=== PATIENT | female | born 1940 ===

== ENCOUNTER 2023-07-20 12:09 | Outpatient (REF) | payer MEDICARE, SELFPAY | END 2023-07-20 12:10 | disposition home or self-care (01) | LOC: HO.HHCL 12:09 | PROVIDERS: Visit Provider Internal Medicine | DX: E11.65 Type 2 diabetes mellitus with hyperglycemia (principal) | CPT/HCPCS: 82043; 82570 ==

== ENCOUNTER 2023-09-12 12:03 | Outpatient (REF) | payer MEDICARE, SELFPAY ==
[2023-09-12 13:30] LABS: MANUAL DIFF FLAG NO
[2023-09-12 13:59] LABS: Basophils Percent Auto 0.5 % (0-2); Eosinophils Absolute Auto 0.1 X10*3/uL (0.0-0.4); Eosinophils Percent Auto 1.1 % (0-4); Hematocrit 42.3 % (37.0-47.0); Hemoglobin 13.7 g/dl (12.0-16.0); Imm Gran Abs Auto 0.02 X10*3/uL (0.00-0.03); Imm Gran Pct Auto 0.3 % (0.0-0.4); Lymphocytes Absolute Auto 1.6 X10*3/uL (1.2-4.9); Lymphocytes Percent Auto 24.6 % (20-40); Mean Corpuscular HGB Conc 32.4 g/dl (31.0-35.0); Mean Corpuscular Hemoglobin 29.3 pg (27.0-33.0); Mean Corpuscular Volume 90.4 fL (80.0-98.0); Mean Platelet Volume 11.9 fL (9.4-12.3); Monocytes Absolute Auto 0.5 X10*3/uL (0.1-1.2); Monocytes Percent Auto 7.6 % (2-11); Neutrophils Absolute Auto 4.3 x10*3/uL (2.0-8.3); Neutrophils Percent Auto 65.9 % (45-73); Platelet Count 227 X10*3/uL (160-400); Red Blood Count 4.68 X10*6/uL (4.20-5.50); Red Cell Distribution Width 13.1 % (11.0-16.0); White Blood Count 6.5 X10*3/uL (4.8-10.8)
[2023-09-12 14:28] LABS: Creatinine Urine 81.57 mg/dL; Microalbum/Creatinine Ratio Ur 7.3 ug/mg cr (<30)
[2023-09-12 14:32] LABS: Alanine Aminotransferase 15 U/L (0-31); Alkaline Phosphatase 50 U/L (39-117); Anion Gap 12 (12-20); Aspartate Amino Transferase 17 U/L (5-31); Bilirubin Direct 0.2 mg/dL (0.0-0.5); Bilirubin Total 0.6 mg/dL (0.0-1.0); Blood Urea Nitrogen 14 mg/dL (9-16); Calcium 9.4 mg/dL (8.4-10.2); Carbon Dioxide 27 mmol/L (22-29); Chloride 106 mmol/L (96-108); Cholesterol 149 mg/dL (<200); Estimated Glomerular Filt Rate > 60; Glucose Random 113 mg/dL (60-115); HDL Cholesterol 59 mg/dL (>40); LDL Cholesterol Calculated 74 mg/dL (<100); Sodium 141 mmol/L (135-145); Total Protein 7.2 g/dL (6.5-8.0); Triglycerides 82 mg/dL (<150)
== END 2023-09-12 12:04 | disposition home or self-care (01) ==
LOC: HO.HHCL 12:03
PROVIDERS: Visit Provider Internal Medicine
DX: E11.65 Type 2 diabetes mellitus with hyperglycemia (principal)
CPT/HCPCS: 36415; 80048; 80061; 80076; 82043; 82570; 85025

== ENCOUNTER 2023-10-27 12:22 | Outpatient (REF) | payer MEDICARE, SELFPAY ==
[2023-10-27 14:24] LABS: Vitamin B12 1548 pg/mL (200-900)
== END 2023-10-27 12:23 | disposition home or self-care (01) ==
LOC: HO.HHCL 12:22
PROVIDERS: Visit Provider Internal Medicine
DX: E11.65 Type 2 diabetes mellitus with hyperglycemia (principal)
CPT/HCPCS: 36415; 82607

== ENCOUNTER 2024-05-07 12:20 | Outpatient (REF) | payer MEDICARE, SELFPAY ==
--- NOTE | ~2024-05-07 | XR_ITS ---
EXAMINATION: LEFT SHOULDER, LEFT HIP CLINICAL INFORMATION: Left hip and left shoulder COMPARISON: None available. TECHNIQUE: 2 views left hip, 5 views left shoulder FINDINGS: Some mild degenerative changes are present in the left hip with some minimal lateral acetabular osteophytes. No significant joint space narrowing seen. No fractures or dislocations. There is evidence of rotator cuff disease with sclerosis and erosion of the undersurface of the acromium. Some mild degenerative changes are seen at the glenohumeral joint. No definite rotator cuff calcification is seen. Some small probable osteophytes seen arising from the scapula projecting posteriorly on the Y view. XR/XR shoulder LT min 2V IMPRESSION: Mild degenerative changes in the left hip and left shoulder. Evidence of rotator cuff disease.
--- NOTE | ~2024-05-07 | XR_ITS ---
EXAMINATION: LEFT SHOULDER, LEFT HIP CLINICAL INFORMATION: Left hip and left shoulder COMPARISON: None available. TECHNIQUE: 2 views left hip, 5 views left shoulder FINDINGS: Some mild degenerative changes are present in the left hip with some minimal lateral acetabular osteophytes. No significant joint space narrowing seen. No fractures or dislocations. There is evidence of rotator cuff disease with sclerosis and erosion of the undersurface of the acromium. Some mild degenerative changes are seen at the glenohumeral joint. No definite rotator cuff calcification is seen. Some small probable osteophytes seen arising from the scapula projecting posteriorly on the Y view. XR/XR hip LT min 2V IMPRESSION: Mild degenerative changes in the left hip and left shoulder. Evidence of rotator cuff disease.
== END 2024-05-07 12:21 | disposition home or self-care (01) ==
LOC: HO.HHCX 12:20
PROVIDERS: Visit Provider Internal Medicine
DX: M25.552 Pain in left hip (principal); M25.512 Pain in left shoulder; G89.29 Other chronic pain
CPT/HCPCS: 73030; 73502

== ENCOUNTER 2024-09-14 15:42 | Outpatient (REF) | payer MEDICARE, SELFPAY ==
[2024-09-14 17:48] LABS: MANUAL DIFF FLAG NO
[2024-09-14 17:53] LABS: Basophils Percent Auto 0.4 % (0-2); Eosinophils Absolute Auto 0.2 X10*3/uL (0.0-0.4); Eosinophils Percent Auto 1.7 % (0-4); Hematocrit 41.8 % (37.0-47.0); Hemoglobin 13.7 g/dl (12.0-16.0); Imm Gran Abs Auto 0.02 X10*3/uL (0.00-0.03); Imm Gran Pct Auto 0.2 % (0.0-0.4); Lymphocytes Absolute Auto 2.4 X10*3/uL (1.2-4.9); Lymphocytes Percent Auto 26.2 % (20-40); Mean Corpuscular HGB Conc 32.8 g/dl (31.0-35.0); Mean Corpuscular Volume 88.4 fL (80.0-98.0); Mean Platelet Volume 11.7 fL (9.4-12.3); Monocytes Absolute Auto 0.8 X10*3/uL (0.1-1.2); Monocytes Percent Auto 8.3 % (2-11); Neutrophils Absolute Auto 5.9 x10*3/uL (2.0-8.3); Neutrophils Percent Auto 63.2 % (45-73); Platelet Count 251 X10*3/uL (160-400); Red Blood Count 4.73 X10*6/uL (4.20-5.50); Red Cell Distribution Width 13.5 % (11.0-16.0); White Blood Count 9.3 X10*3/uL (4.8-10.8)
[2024-09-14 18:13] LABS: Alanine Aminotransferase 23 U/L (0-31); Alkaline Phosphatase 66 U/L (39-117); Anion Gap 14 (12-20); Aspartate Amino Transferase 22 U/L (5-31); Bilirubin Total 0.5 mg/dL (0.0-1.0); Blood Urea Nitrogen 22 mg/dL (9-16); Calcium 9.5 mg/dL (8.4-10.2); Carbon Dioxide 26 mmol/L (22-29); Chloride 104 mmol/L (96-108); Estimated Glomerular Filt Rate > 60; Glucose Random 105 mg/dL (60-115); Potassium 3.9 mmol/L (3.3-5.1); Sodium 140 mmol/L (135-145); Total Protein 7.3 g/dL (6.5-8.0)
== END 2024-09-14 15:43 | disposition home or self-care (01) ==
LOC: HO.HHCL 15:42
PROVIDERS: Visit Provider Nurse Practitioner
DX: Z01.818 Encounter for other preprocedural examination (principal)
CPT/HCPCS: 36415; 80053; 85025

== ENCOUNTER 2025-02-18 10:50 | Outpatient (REF) | payer MEDICARE, SELFPAY ==
--- OUTSIDE RECORDS SUMMARY | 2025-02-18 11:34 | XMS_ITS | Encounter Summary ---
Author Organization [employer] Address [address] [facility] [address] [place] [address] Care Team Providers Care Supervisor Press Room Name Role Phone Melanie Austin MD Primary Care Provide r Reason for Visit * Reason Onset Date Comments New Patient 06/21/2023 Encounter Details Date Type Department Care Team (Late st Contact Info) Description 06/21/2023 Telephone [facility] [address] [place], [place] [phone] Marcial Martinez MD [address] [place] [address] New Patient Social History Tobacco Use Types Packs/Day Years Used Date Smoking Tobacco: Never Assessed Comments Unknown Sex and Gender Information Value Date Recorded Sex Assigned at Female 06/21/2023 5:28 PM EDT Legal Sex Female 5:23 PM EDT Gender Identity Female 06/21/2023 5:28 PM EDT Sexual Orientation Don't know 08/12/2023 9: 43 AM EDT Sexual Orientation Straight 08/12/2023 9: 43 AM EDT documented as of this encounter Miscellaneous Notes * Telephone Encounter - Hood Peres - 06/28/2023 11:42 AM EDT PAR Hood Cole called pt to Offer HOUSE CALLS NURSE appt. Pt demographics and insurance information were verified. Pt reports the following medical conditions: Diabetes and High Blood Pressure. Pt is currentlytaking medication: Yes (advised to please bring on date of appt.) Pt given HOUSE CALLS NURSE appt with Dr. Manzanares on 07/15/2023 @ 2:00 pm. Pt will be sent appt reminder card and medical release form and agrees tocomplete and to return to medical records prior to HOUSE CALLS NURSE appt. * Telephone Encounter - Cristopheralisson Douglas Peres - 06/21/2023 5:29 PM EDT Pt has been transfer over to wait list for HOUSE CALLS NURSE. EFFECTIVE SINCE 06/21/2023 documented in this encounter Plan of Treatment Upcoming Encounters Date Type Department Care Team (Late st Contact Info) Description 03/07/2025 11:00 AM EDT Clinical Support [address] [address] 05/27/2025 11:00 AM EDT Office Visit [facility] [address] [place] [phone] Melanie Austin MD [address] [place] [address] documented as of this encounter Visit Diagnoses Not on filedocumented in this encounter Care Teams Supervisor Press Room Relationship Specialty Start Date End Date Melanie Austin MD [address] [place] [phone] PCP - General Internal Medicine 07/19/23 documented as of this encounter
--- OUTSIDE RECORDS SUMMARY | 2025-02-18 11:35 | XMS_ITS | Clinical Summary ---
Author Organization [employer] Address [address] [facility] 7[address] [place] [address] Care Team Providers Care Cargo Bracer Name Role Phone Melanie Austin MD Primary Care Provide r Allergies Active Allergy Reactions Criticality Noted Date Comments Aspirin Nausea And Vomiting 06/03/2003 Other reaction(s): Gastritis Medications Blood Glucose Monitoring Suppl (Portfolia) w/Device kitIndications:Ty pe 2 diabetes mellitus with hyperglycemia, without long-term current use of insulin (CMS/HCC) Use to monitor blood glucose twice daily 1 kit 3 Active Multiple Vitamin (Daily-Wilfrid) tablet TAKE 1 TABLET BY MOUTH 1 TIME DAILY. TAKE WITH FOOD. 90 tablet 3 4 Active Blood Pressure Monitoring (Omron 3 Series BP Monitor) device USE TO CHECK BLOOD PRESSURE ONCE DAILY 4 Active amLODIPine (Norvasc) 5 MG tabletIndications :Primary hypertension Take 1 tablet (5 mg) by mouth Once per day. 30 tablet 4 02/20/20 25 Active dextran 70-hypromellose (artificial tears) 0.1-0.3 % ophthalmic solutionIndicatio ns:Dry eyes Administer 1 drop into both eyes if needed in the morning, at noon, and at bedtime for dry eyes. 15 mL 5 4 07/31/20 25 Active atorvastatin (Lipitor) 40 MG tabletIndications :Type 2 diabetes mellitus with hyperglycemia, without long-term current use of insulin (CMS/HCC) Take 1 tablet (40 mg) by mouth Once per day. 30 tablet 11 4 08/30/20 25 Active cholecalciferol (Vitamin D-3) 25 MCG tabletIndications :Type 2 diabetes mellitus with hyperglycemia, without long-term current use of insulin (CMS/[facility]) TAKE 1 TABLET BY MOUTH EVERY MORNING 90 tablet 1 4 Active glucose blood (OneTouch Verio) test stripIndications: Type 2 diabetes mellitus with hyperglycemia, without long-term current use of insulin (CMS/HCC) TEST BLOOD SUGAR TWICE DAILY 100 strip 11 4 Active Lancets (Ingenium GolfTouch Delica Plus [id number]) miscIndications:T ype 2 diabetes mellitus with hyperglycemia, without long-term current use of insulin (CMS/HCC) TEST BLOOD SUGAR TWICE DAILY 100 each 11 4 Active losartan-hydroCHL OROthiazide (Hyzaar) 100-25 MG tabletIndications :Primary hypertension TAKE 1 TABLET BY MOUTH EVERY MORNING 30 tablet 11 5 Active metFORMIN, OSM, (Fortamet) 500 MG 24 hr tabletIndications :Type 2 diabetes mellitus with hyperglycemia, without long-term current use of insulin (CMS/[facility]) Take 1 tablet (500 mg) by mouth with evening meal. Do not crush, chew, or split. 30 tablet 3 5 02/19/20 26 Active doxycycline (Vibra-Tabs) 100 MG tabletIndications :Infected wound Take 1 tablet (100 mg) by mouth 2 times daily for 7 days. Take with a full glass of water and do not lie down for at least 30 minutes after. 14 tablet 5 02/26/20 25 Active Active Problems Problem Noted Date Diagnosed Date Infected wound 02/18/2025 Preop examination 11/20/2024 Assessment & Plan (11/20/2024 12:25 PM EST): Patient is low risk for low risk procedure Surgery should proceed as scheduled RCRI score is 0 which means is a 3.9% risk I advised n.p.o. after midnight before the procedure Advised to take her blood pressure medications the morning of the procedure with a small sip of water Bilateral leg weakness 11/20/2024 Neuropathy of both feet 05/07/2024 Assessment & Plan (05/07/2024 12:21 PM EDT): Podiatry referral Chronic left shoulder pain 02/06/2024 Assessment & Plan (05/07/2024 12:21 PM EDT): XRAY will be reprinted and given to patient Acetaminophen PRN Left hip pain 02/06/2024 Type 2 diabetes mellitus wit hout complication, without long-term current use of insulin 07/15/2023 Assessment & Plan (11/20/2024 12:26 PM EST): Extensive counseling about diabetic diet done today I also advised cardiovascular exercise as tolerated I decided to discontinue metformin she is only taking 500 mg once a day I will recheck her A1c and she was on next appointment if it starts to climb in up again I will restart her metformin Assessment & Plan (05/07/2024 12:22 PM EDT): Diabetes is: controlled - Lab Results Component Value Date HGBA1C 6.4 (A) 05/07/2024 HGBA1C 5.9 01/27/2024 HGBA1C 6.2 (A) 10/27/2023 - Lab Results Component Value Date MICROALBUR 6.0 09/12/2023 CREATININE 0.60 09/12/2023 -Changes: none - Diabetic eye exam:referral done - Diabetic foot exam:referral done - Continue lifestyle modifications - Continue current medications - Follow up: 3 months Assessment & Plan (02/06/2024 4:37 PM EDT): Diabetes is: controlled - Lab Results Component Value Date HGBA1C 5.9 01/27/2024 HGBA1C 6.2 (A) 10/27/2023 - Lab Results Component Value Date MICROALBUR 6.0 09/12/2023 CREATININE 0.60 09/12/2023 -Changes: none - Diabetic eye exam:up to date - Diabetic foot exam:pending - Continue lifestyle modifications - Continue current medications - Follow up: 3 months Assessment & Plan (07/15/2023 2:44 PM EDT): Diet counseling done C/w metformin 500mg BID Primary hypertension 07/15/2023 Assessment & Plan (05/07/2024 12:21 PM EDT): - Aerobic exercise to reduce BP. Initial goal of 30 min walk 3-5x/week. Increase as tolerated. - low-sodium diet (goal: <2g/day) and heart healthy diet such as DASH to reduce BP and prevent ASCVD. - Home BP monitoring 1-2 x day with goal of <140/90. - Seek immediate medical attention for chest pain, palpitations, SOB, syncope, or sudden changes in mental status. - Do not change or discontinue current prescriptions without first consulting health care provider Assessment & Plan (02/06/2024 4:36 PM EDT): -Blood pressure is high today I increase her amlodipine to 10mg RTC in 2 weeks with nurse for BP check if BP not at goal plan is to add hydralazine 25mg TID - Aerobic exercise to reduce BP. Initial goal of 30 min walk 3-5x/week. Increase as tolerated. - low-sodium diet (goal: <2g/day) and heart healthy diet such as DASH to reduce BP and prevent ASCVD. - Home BP monitoring 1-2 x day with goal of <140/90. - Seek immediate medical attention for chest pain, palpitations, SOB, syncope, or sudden changes in mental status. - Do not change or discontinue current prescriptions without first consulting health care provider Assessment & Plan (07/15/2023 2:44 PM EDT): Maintenance: BMP: ordered Lipid Panel: ordered ASCVD Risk: already on atorvastatin 40mg daily - Aerobic exercise to reduce BP. Initial goal of 30 min walk 3-5x/week. Increase as tolerated. - low-sodium diet (goal: <2g/day) and heart healthy diet such as DASH to reduce BP and prevent ASCVD. - Home BP monitoring 1-2 x day with goal of <140/90. - Seek immediate medical attention for chest pain, palpitations, SOB, syncope, or sudden changes in mental status. - Do not change or discontinue current prescriptions without first consulting health care provider Encounters Date Type Department Care Team Description 02/18/2025 10:00 AM EDT Office Visit [facility] [address] [place] [address] Melanie Austin MD Type 2 diabetes mellitus with hyperglycemia, without long-term current use of insulin ([facility]); Primary hypertension; Infected wound 02/18/2025 Travel 02/15/2025 Telephone [facility] [address] [place], [place] [phone] Melanie Austin MD Chart Prep 02/12/2025 Patient Outreach [facility] [address] [place] [address] Melanie Austin MD Pre-visit Planning ([facility] unable to reach [facility] ) 11/29/2024 Telephone [facility] [address] [place], [place] [phone] Melanie Austin MD from Last 3 Months Immunizations Name Administration Dates Next Due HepB-CpG 10/27/2023 Influenza High-dose Quadriva lent Preservative Free 07/15/2023 Influenza injectable quadriv alent IIV4 with preservative 08/29/2019,10/23/2018,06/28/2017,2015,09/15/2015 Influenza injectable quadriv alent preservative free 09/04/2021 Influenza, IIV3, injectable 08/26/2011,1 11/18/2009,07/30/2008,2005 Influenza, Split (incl. luan fied surface antigen) 11/10/2012 Pneumococcal Conjugate PCV 13 08/11/2016, 009 Pneumococcal Conjugate PCV 20 07/15/2023 RSV Bivalent 10/27/2023 TD (adult), 2 Lf tetanus tox oid, preservative free, adsorbed 12/14/2005 Tdap 09/12/2023,11/10/2012 Zoster, Recombinant 09/12/2023,03/13/2019 Social History Tobacco Use Types Packs/Day Years Used Date Smoking Tobacco: Never Passive Smoke Exposure: Never Smokeless Tobacco: Never Tobacco Cessation:Counseling Given: Not Answered Alcohol Use Standard Drinks/Week Comments Never 0 (1 standard drink = 0.6 oz pur e alcohol) Depression Answer Date Recorded Patient Health Questionnaire-9 Score 0 11/20/2024 Patient Health Questionnaire-9 Score 0 11/20/2024 Last PHQ-9: Questionnaire Data Not on file 0 11/20/2024 Housing Stability Answer Date Recorded What is your housing situation today? I have mara marie 11/20/[address] you li ve. Do you have problems with any of the following? None of the above 11/20/2024 Food Insecurity Answer Date Recorded Within the past 12 months, y ou worried that your food would run out before you got money to buy more: Never True 11/20/2024 Within the past 12 months,th e food you bought just didn't last and you didn't have enough money to get more: Never True 08/2025 Transportation Answer Date Recorded In the past 12 months, has l ack of transportation kept you from medical appts, meetings, work or from getting things needed for daily living? No 11/20/2024 Utilities Answer Date Recorded In the past 12 months, has t he electric, gas, oil or water company threatened to shut off services in your home? No 11/20/2024 Depression Answer Date Recorded Patient Health Questionnaire-2 Score 0 11/20/2024 Internet Access Answer Date Recorded Internet Access Q1 Yes 11/20/2024 Internet Access Q2 Not on file 11/20/2024 Comments Unknown Sex and Gender Information Value Date Recorded Sex Assigned at Female 06/21/2023 5:28 PM EDT Legal Sex Female 5:23 PM EDT Gender Identity Female 06/21/2023 5:28 PM EDT Sexual Orientation Don't know 08/12/2023 9: 43 AM EDT Sexual Orientation Straight 08/12/2023 9: 43 AM EDT Last Filed Vital Signs Vital Sign Reading Time Taken Comments Blood Pressure 142/68 02/18/2025 10:26 AM EDT Pulse 60 02/18/2025 10:19 AM EDT Temperature 36.3 ??C (97.3 ??F) 02/18/2025 10:19 AM E DT Respiratory Rate 20 02/18/2025 10:19 AM EDT Oxygen Saturation 99% 02/18/2025 10:19 AM EDT Inhaled Oxygen Concentration - - Weight 53.5 kg (118 lb) 02/18/2025 10:19 AM EDT Height 139.7 cm (4' 7 ) 02/18/2025 10:19 AM EDT Body Mass Index 27.43 02/18/2025 10:19 AM EDT Plan of Treatment Upcoming Encounters Date Type Department Care Team (Late st Contact Info) Description 03/07/2025 11:00 AM EDT Clinical Support [facility] [address] [place] [address] 05/27/2025 11:00 AM EDT Office Visit [facility] [address] [place] [phone] Melanie Austin MD [address] [place] [address] Health Maintenance Due Date Last Done Comments Diabetes: Foot Exam 1952 Alcohol/Substance Use Screening 1952 Hepatitis B Vaccines (2 of 2 - CpG 2-dose series) 11/24/2023 10/27/2023 COVID-19 Vaccine ( season) 2024 03/27/2021, 02/25/2021 Influenza Vaccine (#1) 2024 , 09/04/2021, 08/29/2019, Additional history exists Diabetes: Urine Protein Screening 09/12/2024 09/12/2023, 07/20/2023 Lipid Panel 09/12/2024 09/12/2023 Diabetes: Hemoglobin A1C 05/21/2025 025, 09/14/2024, 05/07/2024, Additional history exists Depression Screening 11/20/2025 11/20/2024, 11/20/19 25 SDOH Screening 11/20/2025 11/20/2024 Tobacco Screening 02/18/2026 02/18/2025 Eye Exam 07/31/2026 07/31/2024, 07/11, 07/31/2024, Additional history exists DTaP/Tdap/Td Vaccines (3 - Td or Tdap) 09/12/2033 09/12/2023, 11/10/2012, 12/14/2005 Pneumococcal Vaccine: 50+ Years Completed 07/15/2023, 08/11/2016, 01/15/2009 Zoster Vaccines Completed 09/12/2023, 03/13/2019 RSV Patients and Patients Aged 60 years or older Completed 10/27/2023 HIB Vaccines Aged Out No longer eligi ble based on patient's age to complete this topic HPV Vaccines Aged Out No longer eligi ble based on patient's age to complete this topic Hepatitis A Vaccines Aged Out No long er eligible based on patient's age to complete this topic IPV Vaccines Aged Out No longer eligi ble based on patient's age to complete this topic Meningococcal Vaccine Aged Out No kiesha quinn eligible based on patient's age to complete this topic RSV under 20 months Aged Out No longe r eligible based on patient's age to complete this topic Rotavirus Vaccines Aged Out No longer eligible based on patient's age to complete this topic Goals Goal Patient Goal Type Associated Problems Recent Progress Patient-Stated? Author Blood Pressure < 140/90 Blood Pressure 142/68(2024 10:26 AM EDT) No Aleksander San Hemoglobin A1c < 8 Result Component 7.6( 10:21 AM EDT) No Aleksander San Procedures Procedure Name Priority Date/Time Associated Diagnosis Comments POCT GLUCOSE Routine 02/18/2025 10:22 AM EDT Type 2 diabetes mellitus with hyperglycemia, without long-term current use of insulin ([facility]) POCT GLYCATED HEMOGLOBIN, TOTAL Routine 02/18/2025 10:21 AM EDT Type 2 diabetes mellitus with hyperglycemia, without long-term current use of insulin (CMS/[facility]) ALBUMIN, RANDOM URINE W/CREATININE Routine 09/12/2023 12:12 PM EST LIPID PANEL, STANDARD Routine 09/12/2023 12:09 PM EST Type 2 diabetes mellitus with hyperglycemia, without long-term current use of insulin (CMS/[facility]) from Last 3 Months or Most Recently Relevant to Health Maintenance Results * POCT Glucose (02/18/2025 10:22 AM EDT) Glucose Blood, POC 163 60 - 200 mg/dL QC Media Lot # [id number] Lot# Expiration Date Blood Capillary blood specimen / Unknown 02/18/2025 10:22 AM EDT us Melanie Ceballos MD POINT OF CARE TEST EN TER/EDIT ORDERABLES Final Result * (ABNORMAL) POCT HGB A1C (02/18/2025 10:21 AM EDT) Hemoglobin A1C 7.6(A) 4.0 - 6.0 % QC Media Lot # [id number] Lot# Expiration Date Blood 02/18/2025 10:2 1 AM EDT Melanie Ceballos MD POINT OF CARE TEST EN TER/EDIT ORDERABLES Final Result * Albumin, Random Urine W/Creatinine (09/12/2023 12:12 PM EST) Creatinine, Urine 81.57 mg/dL [facility] Microalbumin Urine 6.0 mg/L [facility] Microalbum Creatinine Ratio Ur 7.3 <30 ug/mg cr [facility] Comment:Albumin/Creatinine R atio Reference Ranges: Normal: < 30 ug/mg creatinine Microalbuminuria: 30 - 300 ug/mg creatinineClinical Albuminuria: > 300 ug/mg creatinine 09/12/2023 12:1 2 PM EST 09/12/2023 1:47 PM EST us Melanie Ceballos MD LAB URINE ORDERABLES Final Result [facility] [address] [place] [phone] * Lipid Panel, Standard (09/12/2023 12:09 PM EST) Triglycerides 82 <150 mg/dL [facility] Comment:Desirable Triglyceri de: less than 150 mg/dLBorderline High Triglyceride 150-199 mg/dLHigh Triglyceride: 200-499 mg/dLVery High Triglyceride: greater than or equal to 5OO mg/dL Cholesterol 149 <200 mg/dL [facility] Comment:Desirable Cholestero l: less than 200 mg/dLBorderline High Cholesterol: 200-239 mg/dLHigh Cholesterol: greater than 239 mg/dL LDL Cholesterol Calculated 74 <100 mg/dL [facility] Comment:Desirable LDL: less than 100 mg/dLNear Optimal/Above Optimal LDL: 110- 129 mg/dLBorderline High LDL: 130-159 mg/dLHigh LDL: 160-189 mg/dLVery High LDL: greater than or equal to 190 mg/dL HDL Cholesterol 59 >40 mg/dL [facility] Comment:Desirable HDL: great er than 40 mg/dL Note: This HDL assay may give artificially low results in patients with liver disease. Blood Venous blood specimen / Unknown 09/12/2023 12:09 PM EST 09/12/2023 1:28 PM EST us Melanie Ceballos MD LAB BLOOD ORDERABLES Final Result [facility] [address] [place] [phone] from Last 3 Months or Most Recently Relevant to Health Maintenance Insurance [id number] DUAL COMPLETE Care Teams Cargo Bracer Relationship Specialty Start Date End Date Melanie Austin MD [address] [place] [phone] PCP - General Internal Medicine 07/19/23
--- OUTSIDE RECORDS SUMMARY | 2025-02-18 11:35 | XMS_ITS | Encounter Summary ---
Author Organization [employer] Address [address] [facility] [address] [place] [address] Care Team Providers Care Medical Billing Coder Name Role Phone Melanie Austin MD Primary Care Provide r Encounter Details Date Type Department Care Team (Late st Contact Info) Description 02/18/2025 10:00 AM EDT Office Visit [facility] [address] [place], [place] [phone] Melanie Austin MD [address] [place] [address] Type 2 diabetes mellitus with hyperglycemia, without long-term current use of insulin ([facility]); Primary hypertension; Infected wound Social History Tobacco Use Types Packs/Day Years Used Date Smoking Tobacco: Never Passive Smoke Exposure: Never Smokeless Tobacco: Never Alcohol Use Standard Drinks/Week Comments Never 0 (1 standard drink = 0.6 oz pur e alcohol) Depression Answer Date Recorded Patient Health Questionnaire-9 Score 0 11/20/2024 Patient Health Questionnaire-9 Score 0 11/20/2024 Last PHQ-9: Questionnaire Data Not on file 0 11/20/2024 Housing Stability Answer Date Recorded What is your housing situation today? I have mara cynthia 11/20/[address] you li [...] AM EDT documented as of this encounter Last Filed Vital Signs Vital Sign Reading [...] Mass Index 27.43 02/18/2025 10:19 AM EDT documented in this encounter Plan of Treatment Upcoming Encounters Date Type Department Care Team (Late st Contact Info) Description 03/07/2025 11:00 AM EDT Clinical Support [facility] [address] [place] [phone] 05/27/2025 11:00 AM EDT Office Visit [facility] [address] [place] [phone] Melanie Austin MD [address] [place] [address] Scheduled Orders Name Type Priority Associated Diagnoses Orde r Schedule Lipid Panel, Standard Lab Routine Type 2 diabetes mellitus with hyperglycemia, without long-term current use of insulin ([facility]) Expected: 02/18/2025 (Approximate), Expires: 02/18/2026 Albumin, Random Urine W/Creatinine Lab Routine Type 2 diabetes mellitus with hyperglycemia, without long-term current use of insulin ([facility]) Expected: 02/18/2025 (Approximate), Expires: 02/18/2026 Comprehensive Metabolic Panel Lab Routine Type 2 diabetes mellitus with hyperglycemia, without long-term current use of insulin ([facility]) Expected: 02/18/2025 (Approximate), Expires: 02/18/2026 documented as of this encounter Goals Goal Patient Goal Type Associated Problems Recent Progress Patient-Stated? Author Blood Pressure < 140/90 Blood Pressure 142/68(2024 10:26 AM EDT) No Aleksander San Hemoglobin A1c < 8 Result Component 7.6( 10:21 AM EDT) No Aleksander San documented as of this encounter Procedures Procedure Name Priority Date/Time Associated Diagnosis Comments POCT GLUCOSE Routine 02/18/2025 10:22 AM EDT Type 2 diabetes mellitus with hyperglycemia, without long-term current use of insulin ([facility]) POCT GLYCATED HEMOGLOBIN, TOTAL Routine 02/18/2025 10:21 AM EDT Type 2 diabetes mellitus with hyperglycemia, without long-term current use of insulin ([facility]) documented in this encounter Results * POCT Glucose (02/18/2025 10:22 AM [...] CARE TEST EN TER/EDIT ORDERABLES Final Result documented in this encounter Visit Diagnoses Diagnosis Type 2 diabetes mellitus with hyperglycemia, without long-term current use of insulin ([facility]) Primary hypertension Unspecified essential hypertension Infected wound Posttraumatic wound infection not elsewhere classified documented in this encounter Additional Health Concerns Assessment Noted Time PHQ-9 Depression Total Score: 0 11/20/19 25 11:07 AM EST documented as of this encounter Care Teams Medical Billing Coder Relationship Specialty Start Date End Date Melanie Austin MD [address] [place] [address] PCP - General Internal Medicine 07/19/23 documented as of this encounter
--- OUTSIDE RECORDS SUMMARY | 2025-02-18 11:35 | XMS_ITS | Encounter Summary ---
Author Organization [employer] Address [address] [facility] 7[address] [place] [address] Care Team Providers Care Diesel Pile Driver Operator Name Role Phone Melanie Austin MD Primary Care Provide r Reason for Visit * Reason Onset Date Comments Med Refill 08/16/2023 Encounter Details Date Type Department Care Team (Late st Contact Info) Description 08/16/2023 Telephone [facility] [address] [place], [place] [phone] Melanie Austin MD [address] [place] [address] Med Refill Social History Tobacco Use Types Packs/Day Years Used Date Smoking Tobacco: Never Passive Smoke Exposure: Never Smokeless Tobacco: Never Housing Stability Answer Date Recorded What is your housing situation today? I have marajohnny marie 07/25/[address] you li ve. Do you have problems with any of the following? None of the above 07/25/2023 Food Insecurity Answer Date Recorded Within the past 12 months, y ou worried that your food would run out before you got money to buy more: Never True 07/25/2023 Within the past 12 months,th e food you bought just didn't last and you didn't have enough money to get more: Never True Transportation Answer Date Recorded In the past 12 months, has l ack of transportation kept you from medical appts, meetings, work or from getting things needed for daily living? No 07/25/2023 Utilities Answer Date Recorded In the past 12 months, has t he electric, gas, oil or water company threatened to shut off services in your home? No 07/25/2023 Comments Unknown Sex and Gender Information Value Date Recorded Sex Assigned at Female 06/21/2023 5:28 PM EDT Legal Sex Female 5:23 PM EDT Gender Identity Female 06/21/2023 5:28 PM EDT Sexual Orientation Don't know 08/12/2023 9: 43 AM EDT Sexual Orientation Straight 08/12/2023 9: 43 AM EDT documented as of this encounter Miscellaneous Notes * Telephone Encounter - Ryann Vargas LPN - 08/16/2023 4:12 PM EST Medication was sent to [facility] on 07/15/23 with 11 refills. * Telephone Encounter - Indy Suarez - 08/16/2023 4:06 PM EST Tc from [facility] with [facility] Insurance requesting med refill on losartan (Cozaar) 100 MG tablet documented in this encounter Plan of Treatment Upcoming Encounters Date Type Department Care Team (Late st Contact Info) Description 03/07/2025 11:00 AM EDT Clinical Support [facility] [address] [place] [phone] 05/27/2025 11:00 AM EDT Office Visit [facility] [address] [place] [phone] Melanie Austin MD [address] [place] [phone] documented as of this encounter Visit Diagnoses Not on filedocumented in this encounter Care Teams Diesel Pile Driver Operator Relationship Specialty Start Date End Date Melanie Austin MD [address] [place] [phone] PCP - General Internal Medicine 07/19/23 documented as of this encounter
--- OUTSIDE RECORDS SUMMARY | 2025-02-18 11:35 | XMS_ITS ---
Author Name Farida Wright NP Address [address] [place] [address] Phone [phone] [facility] Care Team Providers Care Air Tube Releaser Name Role Phone Farida Wright Unavailable [phone] Reason for Referral Not Available Allergies, adverse reactions, alerts Allergen Type Reaction Severity Status Onset Date Aspirin Allergy to substance (disorder) GI problems Modera te Active N/A History of medication use Medication Class Instructions Start Date End Date OneTouch Delica Plus Lancet3 3G Miscellaneous TEST BLOOD SUGAR TWICE DAILY 2023-07-20 No Data Available One-Daily Multi-Vitamin Tab TAKE 1 TABLE T BY MOUTH EVERY MORNING 2022-12-03 No Data Available metFORMIN 500 mg Tab TAKE 1 TABLET BY MO UTH TWICE DAILY IN THE MORNING AND IN THE EVENING 2023-07-15 No Data Available Medbox Status USE DIRECTED 2023-09-12 No Data Supriya ilable Atorvastatin Calcium 40 mg Tab TAKE 1 TA BLET BY MOUTH EVERY MORNING 2023-07-15 No Data Available amLODIPine Besylate 5 mg Tab TAKE 1 TABL ET BY MOUTH EVERY MORNING 2023-07-15 No Data Available cholecalciferol (vitamin D3) 25 mcg (1,000 unit) tablet TAKE 1 TABLET BY MOUTH EVERY MORNING 2023-11-23 No Data Available OneTouch Verio Strip TEST BLOOD SUGAR TW ICE DAILY 2023-07-20 No Data Available MULTIVITAMIN TABLET TAKE 1 TABLET BY NAVYA TH EVERY MORNING WITH FOOD 2023-12-26 No Data Available Losartan Potassium-HCTZ 100/ 25 mg Tab TAKE 1 TABLET BY MOUTH EVERY MORNING 2023-10-27 No Data Available Acetaminophen Extra Strength 500 mg Tab TAKE 2 TABLETS BY MOUTH EVERY 8 HOURS NEEDED FOR MILD PAIN FOR UP TO 10 DAYS 2024-02-06 No Data Available Problem List Problem Status Onset Date Resolved Date 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 2024-05-14 N/A Hypertension Active 2024-05-14 N/A Other problems related to [facility] facilities and other health care Active 2024-05-24 N/A Encounters Encounters Type Facility Date of Service Diagnosis/Co mplaint New patient,40-59min; chronic exacerbation, 2 stable chronic or 1 acute illness add add modifier 95 for video (do not use for phone, instead use [id number]) [facility]24 Type 2 diabetes mellitus wit h diabetic polyneuropathyEssential (primary) hypertensionOther problems related to medical facilities and other health care New patient,40-59min; chronic exacerbation, 2 stable chronic or 1 acute illness add add modifier 95 for video (do not use for phone, instead use [id number]) [facility]14/2024 New patient,40-59min; chronic exacerbation, 2 stable chronic or 1 acute illness add add modifier 95 for video (do not use for phone, instead use 04746-31) [facility]/14/2024 New patient,40-59min; chronic exacerbation, 2 stable chronic or 1 acute illness add add modifier 95 for video (do not use for phone, instead use 89842-35) [facility] 05/14/2024 New patient,40-59min; chronic exacerbation, 2 stable chronic or 1 acute illness add add modifier 95 for video (do not use for phone, instead use 62131-17) [facility] 05/14/2024 New patient,40-59min; chronic exacerbation, 2 stable chronic or 1 acute illness add add modifier 95 for video (do not use for phone, instead use 57440-50) [facility] 05/14/2024 Vital Signs Date of Collection Vitals 2024-05-14 13:33:49 Height - 144.78 cmWe ight - 50.35 kgBody Mass Index (BMI) - 24.02 kg/m2BP Diastolic - 69.0 mm[Hg]BP Systolic - 116.0 mm[Hg] Social History Social History Social History Observation Description Effec tive Time Current Smoking Status Never smoker 2025-02-07 2 Sex Female History of Procedures Procedures Service Procedure code Service date Servicing provider Phone# New patient,40-59min; chronic exacerbation, 2 stable chronic or 1 acute illness add add modifier 95 for video (do not use for phone, instead use [id number]) 33508 2024-05-14 No Data Available No Data Availa ble Medication Review by prescribing provider or pharmacist documented (1160F) 1160F 2024-05-14 No Data Available No Data Supriya ilable Medication List Documented (1159F) 1159F 2024-05-14 No Data Available No Data Supriya ilable SBP < 130 (3074F) 3074F 2024-05-14 No Data Available No Data Available DBP <80 (3078F) 3078F 2024-05-14 No Data Available No Data Available BMI obtained (3008F) 3008F 2024-05-14 No Data Availab le No Data Available Functional Status Functional Category Effective Dates ADLs Ambulating - Independen t Dressing - Independent Bathing - Some AssistanceToileting - Independent Transfers - Independent Eating - Independent iADLs Shopping - Needs assistance Medications - Some AssistanceHousekeeping - Needs assistance Cooking - Needs assistance 2024-05-14 Mental Status No Information Assessments Date of Service Assessments 2024-05-14 13:33:49 Type 2 diabetes deric itus with diabetic polyneuropathyHypertensionOther problems related to medical facilities and other health care Plan of Care Date of Service Plans 2024-05-14 13:33:49 Pain Assessment - NO pain documented (1126F)Medication Review by prescribing provider or pharmacist documented (1160F)Medication List Documented (1159F)Functional Status Assessed (1170F)Advance Care Directive Advance care planning discussion documented in the medical record (1158F)BMI obtained (3008F)SBP < 130 (3074F)DBP <80 (3078F)Televideo new patient,40-59min; chronic exacerbation, 2 stable chronic or 1 acute illness add modifier 95Advance care planning discussed and documented ? advance care plan or surrogate decision-maker was documented in the medical record. (1123F)Continue to see PCP. Follow-up with [facility] as needed for any acute or disease education needs that may arise.MetforminFasting BG usually in the 105 range.AmlodipineLosartan/HCTZAdvice on low sodium dietPlease call CB ifAltered Mental State, unusual agitation,BG >300 or <80,BP >160/100 or <100/60 Health Concerns Date Concern 2024-05-14 Visit completed by gabriela rouse and video. Patient/Guardian agreed to visit via telehealth. Introductory visit with Mckenna to establish care. Today, patient has chief complaint of: establishing care.Reviewed Allergies, Medications, Active Medical conditions, past medical/surgical history, Social history. 2024-05-14 Most recent hospital stay(s) or ER visit(s) and precipitating factors: 2024-05-14 HCP is daughter Prabha Ordonez; FULL CODE 2024-05-14 Open HEDIS Measure r viktoriya:
--- OUTSIDE RECORDS SUMMARY | 2025-02-18 11:35 | XMS_ITS | Encounter Summary ---
Author Organization [employer] Address [address] [facility] 7t [place] [address] Care Team Providers Care Booth Operator Name Role Phone Melanie Austin MD Primary Care Provide r Encounter Details Date Type Department Care Team (Latest Contact Info) Description 02/18/2025 Travel Social History Tobacco Use Types Packs/Day Years [...] housing situation today? I have marajohnny marie 11/20/[address] you [...] AM EDT documented as of this encounter Plan of Treatment Upcoming Encounters Date Type Department Care Team (Late st Contact Info) Description 03/07/2025 11:00 AM EDT Clinical Support [address] [address] 05/27/2025 11:00 AM EDT Office Visit [address] [address] Melanie Austin MD [address] [place] [phone] documented as of this encounter Goals Goal Patient Goal Type Associated Problems Recent Progress Patient-Stated? Author Blood Pressure < 140/90 Blood Pressure 142/68(2024 10:26 AM EDT) No Aleksander San Hemoglobin A1c < 8 Result Component 7.6( 10:21 AM EDT) No Aleksander San documented as of this encounter Visit Diagnoses Not on filedocumented in this encounter Additional Health Concerns Assessment Noted Time PHQ-9 Depression Total Score: 0 11/20/19 25 11:07 AM EST documented as of this encounter Care Teams Booth Operator Relationship Specialty Start Date End Date Melanie Austin MD [address] [place] [phone] PCP - General Internal Medicine 07/19/23 documented as of this encounter
--- OUTSIDE RECORDS SUMMARY | 2025-02-18 11:35 | XMS_ITS | Encounter Summary ---
Author Organization [facility] Address [address] [place] [address] Care Team Providers Care .Net Programmer Name Role Phone Ani Farley TRANSFER MAN Primary Care Provider [phone] Encounter Details Date Type Department Care Team (Late st Contact Info) Description 03/14/2021 Telephone [facility] Emergency Department [address] [place] [address] Helena Hall RN Social History Tobacco Use Types Packs/Day Years Used Date Smoking Tobacco: Never Smokeless Tobacco: Never Comments:: Alcohol Use Standard Drinks/Week Comments Never 0 (1 standard drink = 0.6 oz pur e alcohol) Comments No Sex and Gender Information Value Date Recorded Sex Assigned at Not on file Legal Sex Female 3:16 AM EDT Gender Identity Not on file Sexual Orientation Not on file documented as of this encounter Plan of Treatment Not on file documented as of this encounter Visit Diagnoses Not on filedocumented in this encounter Care Teams .Net Programmer Relationship Specialty Start Date End Date Ani Farley NP [address] [place] [address] PCP - General 04/28/17 documented as of this encounter
--- OUTSIDE RECORDS SUMMARY | 2025-02-18 11:35 | XMS_ITS | Encounter Summary ---
Author Organization [facility] Address [address] [place] [address] Care Team Providers Care Roll Clamp Operator Name Role Phone Ani Farley NP Primary Care Provider [phone] Encounter Details Date Type Department Care Team (Late st Contact Info) Description 03/17/[address] [facility] Emergency Department [address] [place] [address] Helena Hall RN Social History Tobacco Use [...] on file documented as of this encounter ED Notes * Helena Hall RN - 03/17/2021 10:22 AM EDT Spoke with pts daughter, steve, made aware of CXR result with incidental finding and that these findings require additional eval and possibly testing. Daughter made aware that the resutls were sent to pcp and encouraged to follow up which she verbalizes understanding. No questions at this time Helena Hall RN 03/17/21 1023 documented in this encounter Miscellaneous Notes * Telephone Encounter - Helena Hall RN - 03/17/2021 10:22 AM EDT ----- Message from Yandy Mcdonough NP sent at 03/14/2021 6:51 PM EDT ----- Regarding: RE: xray Please contact pt and have her call PCP Tuesday03/16/21 so that an out patient CT scan can be done ----- Message ----- From: Helena Hall RN Sent: 03/14/2021 5:45 PM EDT To: [facility] Ed Lip Review Pool Subject: xray ----- Message ----- From: Interface, Radiology Results In Sent: 03/14/2021 3:56 PM EDT To: , # documented in this encounter Plan of Treatment Not on file documented as of this encounter Visit Diagnoses Not on filedocumented in this encounter Care Teams Roll Clamp Operator Relationship Specialty Start Date End Date Ani Farley NP [address] [place] [phone] PCP - General 04/28/17 documented as of this encounter
--- OUTSIDE RECORDS SUMMARY | 2025-02-18 11:35 | XMS_ITS | Continuity of Care Document ---
Author Organization [facility] Address [address] [place] [address] Care Team Providers Care Manager Statistical Programming Name Role Phone Memo Gardner NP Primary Care Provider [phone] Encounters Date Type Department Care Team Description 05/11/2021 10:15 AM EDT Radiology [facility] Xray 123 [facility] [address] [place] [address] 05/11/2021 9:15 AM EDT Radiology [facility] Xray [address] [address] Neck pain 05/11/2021 9:25 AM EDT Consult (Initial) [facility] Orthopedic Surgery [address] [facility] [address] [place] [phone] Miguel Srivastava MD Neck pain (Primary Dx); Chronic left shoulder pain; Chronic nonintractable headache, unspecified headache type 02/27/2021 Telephone [facility] Orthopedic Surgery [address] [phone] Jose Rodríguze MD Appointment Allergies Active Allergy Reactions Criticality Noted Date Comments Aspirin Nausea/GI Upset 06/03/2003 Medications acetaminophen (TYLENOL) 325 MG tablet TAKE 1 2 (325MG) BY ORAL ROUTE EVERY 6 HOURS NEEDED FOR PAIN AND HEADACHE NEEDED 11/13/2020 Active Atorvastatin Calcium (LIPITOR) 40 MG tablet Take 40 mg by mouth 1 (one) time each day 02/15/2021 Active Vitamin D High Potency 25 MCG (1000 UT) capsule Take 2,000 Units by mouth 1 (one) time each day 10/27/2020 Active hydroCHLOROthia zide (HYDRODIURIL) 25 MG tablet Take 25 mg by mouth 1 (one) time each day 02/15/2021 Active Losartan Potassium (COZAAR) 100 MG tablet Take 100 mg by mouth 1 (one) time each day 02/17/2021 Active Multiple Vitamin (Daily-Wilfrid) Tab Take 1 tablet by mouth 1 (one) time each day WITH FOOD 11/22/2020 Active Active Problems Problem Noted Date Diagnosed Date Neck pain_PT 07/22/2021 Chronic left shoulder pain_PT 07/22/2021 Social History Smoking Status as of 02/18/2025 Tobacco Use Types Packs/Day Years Used Date Smoking Tobacco: Never Assessed Intimate Partner Violence Answer Date R ecorded Fear of Current or Ex-Partner Not on file Emotionally Abused Not on file 05/31/2023 Physically Abused Not on file 05/31/2023 Sexually Abused Not on file 05/31/2023 Feel Safe at Home Not on file 05/31/2023 Sex and Gender Information Value Date Recorded Sex Assigned at Not on file Legal Sex Female 8:16 PM EDT Gender Identity Not on file Sexual Orientation Not on file Plan of Treatment Not on file Procedures * Due to [place] OTOY law, this organization might not be sharing negative HIV tests. Procedure Name Priority Date/Time Associated Diagnosis Comments XRAY SHOULDER COMPLETE MIN 2 VWS - LEFT (DX: SHOULDER PAIN *NO INJURY*) Routine 05/11/2021 10:05 AM EDT XRAY SPINE, CERVICAL; 3 VIEWS OR LESS Routine 05/11/2021 9:11 AM EDT Neck pain Results * Due to [place] law, this organization might not be sharing negative HIV tests. * XRAY SHOULDER COMPLETE MIN 2 VWS - LEFT (DX: SHOULDER PAIN *NO INJURY* M25.512/ 719.41) FC (05/11/2021 10:05 AM EDT) Anatomical Region Laterality Modality UPPER EXTREMITY Radiographic Anais ging 05/11/2021 11:4 8 AM EDT Narrative 05/11/2021 11:48 AM EDT CONTRAST: EXAM: X-ray left shoulder Comparison: None FINDINGS: 3 views of the left shoulder demonstrate mild to moderate medial joint space narrowing with subchondral sclerosis and cystic changes within the greater tuberosity. ??There are hypertrophic changes of the acromioclavicular joint. ?? Visualized left lung is clear. ??There is no fracture or dislocation. IMPRESSION: ? Degenerative changes of the glenohumeral and acromioclavicular joints without acute traumatic injury. Procedure Note Bushra Wan MD - 05/11/2021 CONTRAST: EXAM: X-ray left shoulder Comparison: None FINDINGS: 3 views of the left shoulder demonstrate mild to moderate medial jointspace narrowing with subchondral sclerosis and cystic changes within the greater tuberosity. There are hypertrophic changes of the acromioclavicularjoint. Visualized left lung is clear. There is no fracture or dislocation. IMPRESSION: Degenerative changes of the glenohumeral and acromioclavicular jointswithout acute traumatic injury. Miguel Srivastava MD IMG XRAY NO CONTRAST ORDERABLES Final Result * XRAY SPINE, CERVICAL; 3 VIEWS OR LESS FC (05/11/2021 9:11 AM EDT) Anatomical Region Laterality Modality Spine Radiographic Anais ging 05/11/2021 9:29 AM EDT Narrative 05/11/2021 9:29 AM EDT CONTRAST: 2 views cervical spine Comparison: None Findings: No fractures or listhesis. Mild facet arthropathy C3-C7. ??No evidence of uncovertebral body spurs. Disc spaces are maintained. ?? Unicinate and transverse processes intact. Lordotic curvature is exaggerated Normal bone mineralization. ??No widening of the retropharyngeal soft tissues. Lung apices demonstrates a prominent aortic arch with calcified atherosclerotic disease. Impression: 1. ??No fractures or listhesis. 2. ??Mild degenerative spondylosis Procedure Note José Eddy MD - 05/11/2021 CONTRAST: 2 views cervical spine Comparison: None Findings: No fractures or listhesis. Mild facet arthropathy C3-C7. No evidence of uncovertebral body spurs. Disc spaces are maintained. Unicinate and transverse processes intact. Lordotic curvature is exaggerated Normal bone mineralization. No widening of the retropharyngeal softtissues. Lung apices demonstrates a prominent aortic arch with calcifiedatherosclerotic disease. Impression: 1. No fractures or listhesis. 2. Mild degenerative spondylosis Miguel Srivastava MD IMG XRAY NO CONTRAST ORDERABLES Final Result Visit Diagnoses Diagnosis Start Date Neck pain Cervicalgia 05/11/2021 Neck pain Cervicalgia 05/11/2021 Chronic left shoulder pain Pain in joint, shoulder region 05/11/2021 Chronic nonintractable headache, unspecified headache type 05/11/2021 Care Teams Manager Statistical Programming Relationship Specialty Start Date End Date Memo Gardner NP [address] [place] [address] PCP - General Nurse Practitioner 02/27/21
--- OUTSIDE RECORDS SUMMARY | 2025-02-18 11:35 | XMS_ITS | Encounter Summary ---
Author Organization [employer] Address [address] [facility] 7t [place] [address] Care Team Providers Care Can Closing Machine Operator Name Role Phone Melanie Austin MD Primary Care Provide r Reason for Visit * Reason Comments Med Refill Encounter Details Date Type Department Care Team ([facility] st Contact Info) Description 12/22/2023 Refill [facility] [address] [place], [place] [phone] Melanie Austin MD [address] [place] [address] Social History Tobacco Use Types Packs/Day Years Used Date Smoking Tobacco: Never Passive Smoke Exposure: Never Smokeless Tobacco: Never Housing Stability Answer Date Recorded What is your housing situation today? I have mara marie 07/25/[address] you [...] Description 03/07/2025 11:00 AM EDT Clinical Support [facility] [address] [place] [address] 05/27/2025 11:00 AM EDT Office Visit [facility] [address] [place] [address] Melanie Austin MD [address] [place] [phone] documented as of this encounter Goals Goal Patient Goal Type Associated Problems Recent Progress Patient-Stated? Author Blood Pressure < 140/90 Blood Pressure 142/68(2024 10:26 AM EDT) No Aleksander San Hemoglobin A1c < 8 Result Component 7.6( 10:21 AM EDT) No Aleksander San documented as of this encounter Visit Diagnoses Not on filedocumented in this encounter Care Teams Can Closing Machine Operator Relationship Specialty Start Date End Date Melanie Austin MD [address] [place] [address] PCP - General Internal Medicine 07/19/23 documented as of this encounter
--- OUTSIDE RECORDS SUMMARY | 2025-02-18 11:35 | XMS_ITS | Clinical Summary ---
Author Organization [facility] Address [address] [place] [address] Care Team Providers Care Senior Accounts Payable Specialist Name Role Phone Ani Farley NP Primary Care Provider Allergies Active Allergy Reactions Criticality Noted Date Comments Aspirin Gastritis Medications vitamin D3 1,000 unit capsule Take 2 capsules by mouth every morning. 03/10/20 18 Active losartan (COZAAR) 100 mg tablet Take 100 mg by mouth every morning. 03/10/20 18 Active DAILY-FELICE tablet TAKE 1 TABLET BY ORAL ROUTE EVERY DAY WITH FOOD 11 03/10/20 18 Active hydroCHLOROthia zide (HYDRODIURIL) 25 mg tablet Take 25 mg by mouth daily. 01/21/20 19 Active loratadine (CLARITIN) 10 mg tablet 03/13/20 19 Active GAS RELIEF 80 mg chewable tablet CHEW ONE TABLET 4 TIMES A DAY NEEDED 2 10/27/19 19 Active SHINGRIX, PF, 50 mcg/0.5 mL injection 03/13/20 19 Active atorvastatin (LIPITOR) 20 mg tablet Take 40 mg by mouth daily. 10/23/19 19 Active polyethylene glycol (COLYTE) solutionIndicat ions:Screen for colon cancer Take according to instructions provided by physician. 4000 mL 05/06/20 20 Active butalbital-acet aminophen-caffe ine (FIORICET) 50-325-40 mg tablet Take 1 tablet by mouth every 4 hours as needed for headache. 12 tablet 05/15/20 20 Active clobetasoL (TEMOVATE) 0.05% cream Apply topically to the affected area. Twice a week PRN to vulvua Active acetaminophen (TYLENOL) 325 mg tablet TAKE 1 - 2 (325MG) BY ORAL ROUTE EVERY 6 HOURS NEEDED FOR PAIN AND HEADACHE NEEDED 02/06/20 21 Active FreeStyle Lite Meter meter CHECK BLOOD SUGAR TWICE DAILY FASTING AND 2 HOURS AFTER MEAL 09/08/20 21 Active Daily-Felice, with folic acid, tablet Take 1 tablet by mouth once a day. 02/17/20 22 Active blood-glucose meter misc use as directed to test blood sugars 1 each 3 6:11 PM EDT 05/19/20 23 Active alcohol swabs (Alcohol Pads) pads, medicated Use up to 8 times daily with meter checks 200 each 3 6:11 PM EDT 05/19/20 23 Active miconazole nitrate (MONISTAT 3) 200 mg suppository Insert 1 suppository (200 mg total) into the vagina nightly. 3 suppository 3 6:44 PM EDT 05/19/20 23 Active metFORMIN ER (GLUCOPHAGE XR) 500 mg tabletIndicatio ns:Type 2 diabetes mellitus without complication, without long-term current use of insulin (HCC) Take 1 tablet (500 mg total) by mouth 2 times a day with meals. 180 tablet 3 06/21/20 Active OneTouch Delica Plus Lancet lancet 33 gaugeIndication s:Type 2 diabetes mellitus without complication, without long-term current use of insulin (HCC) Use to test 1 times daily. 100 each 3 06/21/20 Active OneTouch Verio test stripsIndicatio ns:Type 2 diabetes mellitus without complication, without long-term current use of insulin (HCC) Use to test 1 times daily. 100 strip 3 06/21/20 Active Active Problems Problem Noted Date Diagnosed Date Mixed hyperlipidemia 06/21/2023 Assessment & Plan (06/21/2023 2:01 PM EDT): Karen is currently on atorvastatin 20 mg daily. She is considered at moderate risk for ASCVD. Her target for LDL cholesterol is <100, and non-HDL target is <130 (their most recent non-HDL cholesterol was 157 mg/dL (11/10/2012)). The patient will need a lipid panel done in the near future and be reassessed at that point for adequacy of control. Type 2 diabetes mellitus wit hout complication, without long-term current use of insulin 03/24/2021 Assessment & Plan (06/21/2023 2:00 PM EDT): Karen Vazquez is a 82 y.o. female with improving Diabetes type 2, without long- term insulin use, complications including none. Her most recent A1c was 15.4% (05/19/2023). Complex data review included: labs including A1c, lipid panel, creatinine and eGFR (for medication dose adjustment), and urine microalbumin to creatinine ratio Factors adding to complexity and affecting decision making regarding medication dosing and adjustment include advanced age and/or multiple comorbidities with less stringent glycemic goals. Karen's diabetes is improving with her reported fasting sugars within target. Her random glucose today was very good as well. For today, will make no adjustments to her medication. She is to continue Metformin for now. She is to continue testing her sugars with her meter. She is to work on a diet low in carbohydrates, starch, and sugar. She is to exercise as tolerated. I advise Karen to contact the clinic if there are any questions and/or concerns. Cervical dysplasia 06/28/2018 Bilateral shoulder pain 09/17/2016 Hypertension 03/17/2012 Assessment & Plan (06/21/2023 2:00 PM EDT): Continue hydrochlorothiazide, losartan. Blood pressure is adequately controlled, and no changes are recommended at this time. The patient is on HUMBERTO inhibitor/ARB, continue with that as part of reduction of diabetic nephropathy progression. Social History Tobacco Use Types Packs/Day Years Used Date Smoking Tobacco: Never Smokeless Tobacco: Never Comments:: Alcohol Use Standard Drinks/Week Comments Never 0 (1 standard drink = 0.6 oz pur e alcohol) Comments No Sex and Gender Information Value Date Recorded Sex Assigned at Not on file Legal Sex Female 3:16 AM EDT Gender Identity Not on file Sexual Orientation Not on file Last Filed Vital Signs Vital Sign Reading Time Taken Comments Blood Pressure 128/67 06/21/2023 1:43 PM EDT Pulse 66 06/21/2023 1:43 PM EDT Temperature 36.9 ??C (98.4 ??F) 05/19/2023 4:54 PM ED T Respiratory Rate 20 05/19/2023 4:54 PM EDT Oxygen Saturation 100% 05/19/2023 4:54 PM EDT Inhaled Oxygen Concentration - - Weight 48 kg (105 lb 13.1 oz) 06/21/2023 1:43 PM EDT Height 144.8 cm (4' 9.01 ) 06/21/2023 1:43 PM ED T Body Mass Index 22.89 06/21/2023 1:43 PM EDT Plan of Treatment Health Maintenance Due Date Last Done Comments Ophthalmology Exam 1950 Urine Microalbumin 1950 Osteoporosis Screening 1992 Pneumococcal Vaccine: 50+ Years (2 of 2 - PPSV23) 10/06/2016 08/11/2016, 01/15/2009 RSV Vaccine (60+ years old and patients) (1 - 1-dose 75+ series) 2017 Zoster Vaccines (2 of 2) 05/08/2019 03/13/2019 DTaP,Tdap,and Td Vaccines (2 - Td or Tdap) 11/10/2022 11/10/2012, 12/14/2005 Hemoglobin A1C 11/19/2023 05/19/2023, 08/0 06/2023, 01/06/2023, Additional history exists Basic Metabolic Panel 05/19/2024 05/19/2023 , 05/18/2023, 03/14/2021, Additional history exists COVID-19 Vaccine ( season) 2024 03/27/2021, 02/25/2021 Alcohol/Substance Use Screening 10/10/2024 Depression Screening and Follow-Up 10/10/2024 Health Care Proxy Review 10/10/2024 Social Drivers of Health Annual Screening 10/10/2024 Colonoscopy 05/21/2025 05/21/2020, 01/12/2010 Influenza Vaccine (Season Ended) 2025 09/04/2021, 08/29/2019, 10/23/2018, Additional history exists Hepatitis B Vaccines Aged Out No long er eligible based on patient's age to complete this topic Procedures * Due to [place] state law, this organization might not be sharing negative HIV tests. Procedure Name Priority Date/Time Associated Diagnosis Comments BASIC METABOLIC PANEL STAT 05/19/2023 8:32 AM EDT HEMOGLOBIN A1C STAT 05/19/2023 6:18 AM EDT COLONOSCOPY 05/21/2020 from Last 3 Months or Most Recently Relevant to Health Maintenance Results * Due to [place] state law, this organization might not be sharing negative HIV tests. * (ABNORMAL) Basic Metabolic Panel (05/19/2023 8:32 AM EDT) NA 135 135 - 145 mmol/L 05/19/2023 9:13 AM EDT [facility] K 4.1 3.5 - 5.3 mmol/L 05/19/2023 9:13 AM EDT [facility] Cl 101 97 - 110 mmol/L 05/19/2023 9:13 AM EDT [facility] CO2 28 24 - 32 mmol/L 05/19/2023 9:13 AM EDT [facility] BUN 11 7 - 23 mg/dL 05/19/2023 9:13 AM EDT [facility] Creatinine 0.53 0.50 - 1.20 mg/dL 05/19/2023 9:13 AM EDT [facility] Glucose 291(H) 70 - 99 mg/dL 05/19/2023 9:13 AM EDT [facility] Calcium 8.1(L) 8.7 - 10.7 mg/dL 05/19/2023 9:13 AM EDT [facility] Anion Gap 6 5 - 15 05/19/2023 9:13 AM EDT [facility] eGFR >90 >=60 mL/min/1. 73m2 05/19/2023 9:13 AM EDT [facility] Comment:The estimated glomer ular filtration rate (eGFR) is calculated using a new formula developed by the NKF-ASN task force to eliminate race-based correction factors. The new formula uses serum/plasma creatinine, age, and gender to determine eGFR. A value below 60mls/min might indicate kidney disease and will be flagged. For additional information, see Lavell et al, Am J Kidney Dis. 2021;79(2):268- 288, A Unifying Approach for GFR estimation: Recommendations of the NKF-ASN Task Force on Reassessing the Inclusion of Race in Diagnosing Kidney Disease . Blood Structure of peripheral vein / Unknown Venipuncture / Unknown 05/19/2023 8:32 AM EDT 05/19/2023 8:38 AM EDT us Juvenal Parikh NP LAB BLOOD ORDERABLES Final Res ult [facility] [address] [place] [address], * (ABNORMAL) Hemoglobin A1c (05/19/2023 6:18 AM EDT) Hemoglobin A1C >14.0(H) <5.7 % of total Hgb 05/19/2023 9:56 PM EDT [facility] Comment: Verified by repeat analysis. For someone without known diabetes, a hemoglobin A1c value of 6.5% or greater indicates that they may have diabetes and this should be confirmed with a follow-up test. For someone with known diabetes, a value <7% indicates that their diabetes is well controlled and a value greater than or equal to 7% indicates suboptimal control. A1c targets should be individualized based on duration of diabetes, age, comorbid conditions, and other considerations. Currently, no consensus exists regarding use of hemoglobin A1c for diagnosis of diabetes for children. ?? eAG (MG/DL) See Comments mg/dL 05/19/2023 9:56 PM EDT [facility] Comment: eAG cannot be calculated. Hemoglobin A1c result exceeds the linearity of the assay. Blood Structure of peripheral vein / Unknown Venipuncture / Unknown 05/19/2023 6:18 AM EDT 05/19/2023 6:36 AM EDT Narrative [facility] 05/19/2023 9:56 PM EDT [facility] Received Date:[id number] Jordyn Amaya MD LAB BLOOD ORDERABLES Final Re sult [facility] [address] [facility] [address]rd Floor, [place] [address], [place] [phone] [facility] [address], [place] [address], [place] [phone] * COLONOSCOPY (05/21/2020) Narrative Procedure Note Aure Menjivar MD - 05/21/2020 10:41 AM EDT Gastroenterology Patient Name: Karenprabhjot Johnsonna Procedure Date: 05/21/2020 10:41 AM Date of : 1940 Admit Type: Outpatient Age: 79 Room: [place] [address] Gender: Female Note Status: Finalized Attending MD: Aure Menjivar MD Procedure: Colonoscopy Indications: Screening for colorectal malignant neoplasm Comorbidities Providers: Aure Menjivar MD, Devin Toro MD (Fellow) Referring MD: Ani Farley MD (Referring MD) Requesting Provider: Medicines: Midazolam 3 mg IV, Fentanyl 75 micrograms IV Complications: No immediate complications. Estimated Blood Loss: Estimated blood loss: none. Procedure: After I obtained informed consent, the scope was passed under direct vision. Throughout the procedure, the patient's blood pressure, pulse, and oxygen saturations were monitored continuously. The Colonoscope was introduced through the anus and advanced to the cecum, identified by appendiceal orifice and ileocecal valve.The colonoscopy was performed without difficulty. Thepatient tolerated the procedure well. The quality of the bowel preparation was good. The bowel preparation used was CoLyte. Findings: The perianal and digital rectal examinations were normal. Multiple small and large-mouthed diverticula were found in thesigmoid colon, descending colon, splenic flexure, transverse colon, hepatic flexure, ascending colon and cecum. A 6 mm polyp was found in the ascending colon. The polyp was sessile. The polyp was removed with a hot snare. Resection and retrieval were complete. The exam was otherwise without abnormality on direct and retroflexion views. Impression: - Diverticulosis in the sigmoid colon, in thedescending colon, at the splenic flexure, in the transverse colon,at the hepatic flexure, in the ascending colon and in the cecum. - One 6 mm polyp in the ascending colon, removed with a hot snare. Resected and retrieved. Recommendation: - Repeat colonoscopy in 5 years for surveillance if clinically stable. Aure Menjivar MD 05/21/2020 11:59:55 AM This report has been signed electronically. Number of Addenda: 0 Note Initiated On: 05/21/2020 10:41 AM Aure Menjivar MD PROVATION PROCEDURES Final Result from Last 3 Months or Most Recently Relevant to Health Maintenance Insurance [employer] [facility] Advance Directives Documents on File Type Date Recorded Patient Hotel Breakfast Attendant Expl [facility] Health Care Proxy 05/08/2019 12:45 PM 05/07 * Full Code (Latest Code Status on File) Date Activated Date Inactivated Comments 05/21/2020 10:42 AM 05/21/2020 2:56 PM * Presumed Full Code Date Activated Date Inactivated Comments 08/23/2018 12:19 PM 08/23/2018 6:37 PM * Full Code Date Activated Date Inactivated Comments 08/23/2018 10:56 AM 08/23/2018 12:19 PM Care Teams Senior Accounts Payable Specialist Relationship Specialty Start Date End Date Ani Farley NP [address] [place] [address] PCP - General 04/28/17
--- OUTSIDE RECORDS SUMMARY | 2025-02-18 11:35 | XMS_ITS | Encounter Summary ---
Author Organization [employer] Address [address] [facility] [address] [place] [address] Care Team Providers Care Ruby Rails Developer Name Role Phone Melanie Austin MD Primary Care Provide r Reason for Visit * Reason Onset Date Comments Durable Medical Equipment 08/16/2023 Boost Encounter Details Date Type Department Care Team ([facility] st Contact Info) Description 08/16/2023 Telephone [facility] [address] [place] [address] Melanie Austin MD [address] [place] [address] Durable Medical Equipment (Boost) Social History Tobacco Use Types Packs/Day Years [...] the past 12 months, has t he [employer], oil or water company threatened to shut [...] encounter Miscellaneous Notes * Telephone Encounter - Ella Moran - 08/19/2023 9:33 AM EST Request was made by patient's insurance for Boost, order was generated an placed on provider desk for review and signature. * Telephone Encounter - Indy Suarez - 08/16/2023 4:13 PM EST Tc from Rosemary with [employer] Insurance requesting Boost drinks for pt if PCP is agree to continue with drinks. documented in this encounter Plan of Treatment Upcoming Encounters Date Type Department Care Team (Late st Contact Info) Description 03/07/2025 11:00 AM EDT Clinical Support [facility] [address] [place] [phone] 05/27/2025 11:00 AM EDT Office Visit [facility] [address] [place] [address] Melanie Austin MD [address] [place] [phone] documented as of this encounter Visit Diagnoses Not on filedocumented in this encounter Care Teams Ruby Rails Developer Relationship Specialty Start Date End Date Melanie Austin MD [address] [place] [phone] PCP - General Internal Medicine 07/19/23 documented as of this encounter
--- OUTSIDE RECORDS SUMMARY | 2025-02-18 11:35 | XMS_ITS | Encounter Summary ---
Author Organization [employer] Address [address] [facility] [address] [place] [address] Care Team Providers Care Cable Mock Up Assembler Name Role Phone Melanie Austin MD Primary Care Provide r Reason for Visit * Reason Onset Date Comments Referral 08/24/2024 Encounter Details Date Type Department Care Team ([facility] st Contact Info) Description 08/24/2024 Telephone [facility] MEDICINE [address], [place] [phone] Melanie Asutin MD [address] [place] [address] Referral Social History Tobacco Use Types Packs/Day Years Used Date Smoking Tobacco: Never Passive Smoke Exposure: Never Smokeless Tobacco: Never Alcohol Use Standard Drinks/Week Comments Never 0 (1 standard drink = 0.6 oz pur e alcohol) Depression Answer Date Recorded Patient Health Questionnaire-9 Score 0 02/06/2024 Patient Health Questionnaire-9 Score 0 02/06/2024 Last PHQ-9: Questionnaire Data Not on file 0 02/06/2024 Housing Stability Answer Date Recorded What is [...] off services in your home? No 07/25/2023 Depression Answer Date Recorded Patient Health Questionnaire-2 Score 0 02/06/2024 Comments Unknown Sex and Gender Information Value Date Recorded Sex Assigned at Female 06/21/2023 5:28 PM EDT Legal Sex Female 5:23 PM EDT Gender Identity Female 06/21/2023 5:28 PM EDT Sexual Orientation Don't know 08/12/2023 9: 43 AM EDT Sexual Orientation Straight 08/12/2023 9: 43 AM EDT documented as of this encounter Miscellaneous Notes * Telephone Encounter - Chiquita Diane RN - 08/24/2024 1:58 PM EST TC placed to pt [phone] via [facility] [employer] [facility] ID: [id number] in regards to below message. RN informed pt that ED included an office and number to contact to schedule appointment with Ortho. Pt reports her daughter called however they do not take her insurance. Pt is requesting if PCP can send anew referral. RN advised pt a message will be sent to PCP and she will receive a call back. Pt verbalizes understanding and agrees to plan. Pt to f/u PRN. * Telephone Encounter - Massimo Glynn - 08/24/2024 12:24 PM EST Tc from pt requesting a referral to a Ortho Specialist. Due to Pt had a bad fall going down some stairs. Pt was taken to the emergency room and her hand was fractured. Doctors told pt to go to a ortho to get a cast. dosen't have any preference as long as they take [facility]. If any question Contact pt at [phone] documented in this encounter Plan of Treatment Upcoming Encounters Date Type Department Care Team (Late st Contact Info) Description 03/07/2025 11:00 AM EDT Clinical Support [facility] MEDICINE [address], [place] [phone] 05/27/2025 11:00 AM EDT Office Visit [facility] MEDICINE [address] [place] [address] Melanie Austin MD [address] [place] [address] documented as of this encounter Goals Goal [...] Noted Time PHQ-9 Depression Total Score: 0 02/06/20 24 11:56 AM EDT documented as of this encounter Care Teams Cable Mock Up Assembler Relationship Specialty Start Date End Date Melanie Austin MD [address] [place] [address] PCP - General Internal Medicine 07/19/23 documented as of this encounter
--- OUTSIDE RECORDS SUMMARY | 2025-02-18 11:35 | XMS_ITS | Referral Summary ---
Author Organization [facility] Address [address] [place] [address] Care Team Providers Care Jigger Crown Pouncing Machine Operator Name Role Phone Ani Farley NP Primary Care Provider [phone] Allergies Active Allergy Reactions Criticality Noted Date [...] multiple comorbidities with less stringent glycemic goals. Karne's diabetes is improving with her reported fasting [...] 06/21/2023 1:43 PM EDT Plan of Treatment Not on file Procedures * Due to [place] law, this organization might not be sharing negative HIV tests. Procedure Name Priority Date/Time Associated Diagnosis Comments BASIC METABOLIC PANEL STAT 05/19/2023 8:32 AM EDT HEMOGLOBIN A1C STAT 05/19/2023 6:18 AM EDT COLONOSCOPY 05/21/2020 from Last 3 Months or Most Recently Relevant to Health Maintenance Results * Due to [place] law, this organization might not be sharing negative HIV tests. * (ABNORMAL) Basic Metabolic Panel (05/19/2023 8:32 AM EDT) NA 135 135 - 145 mmol/L 05/19/2023 9:13 AM EDT [facility] K 4.1 3.5 - 5.3 mmol/L 05/19/2023 9:13 AM EDT [facility] Cl 101 97 - 110 mmol/L 05/19/2023 9:13 AM EDT [facility] CO2 28 24 - 32 mmol/L 05/19/2023 9:13 AM EDT [facility] BUN 11 7 - 23 mg/dL 05/19/2023 9:13 AM EDT [facility] Creatinine 0.53 0.50 - 1.20 mg/dL 05/19/2023 9:13 AM EDT [facility] Glucose 291(H) 70 - 99 mg/dL 05/19/2023 9:13 AM EDT [facility] Calcium 8.1(L) 8.7 - 10.7 mg/dL 05/19/2023 9:13 AM EDT [facility] Anion Gap 6 5 - 15 05/19/2023 9:13 AM EDT [facility] eGFR >90 >=60 mL/min/1. 73m2 05/19/2023 9:13 AM EDT [facility] Comment:The estimated glomer ular [...] NP LAB BLOOD ORDERABLES Final Res ult [facility] [address] [place] [id number], * (ABNORMAL) Hemoglobin A1c (05/19/2023 6:18 AM EDT) Hemoglobin A1C >14.0(H) <5.7 % of total Hgb 05/19/2023 9:56 PM EDT [facility] Comment: Verified by repeat analysis. For someone [...] See Comments mg/dL 05/19/2023 9:56 PM EDT [facility] Comment: eAG cannot be calculated. Hemoglobin A1c result exceeds the linearity of the assay. Blood Structure of peripheral vein / Unknown Venipuncture / Unknown 05/19/2023 6:18 AM EDT 05/19/2023 6:36 AM EDT Narrative [facility] - 05/19/2023 9:56 PM EDT [facility] Received Date:[id number] Jordyn Amaya MD LAB BLOOD ORDERABLES Final Re sult [address], [place] [address], [facility] [address], [place] [address], * COLONOSCOPY (05/21/2020) Narrative Procedure Note Aure Menjivar MD - 05/21/2020 10:41 AM EDT Gastroenterology Patient Name: Karen Vazquez Procedure Date: 05/21/2020 10:41 AM Date of : 1940 Admit Type: Outpatient Age: 79 Room: [place] [address] Gender: Female Note Status: Finalized Attending MD: [...] Recently Relevant to Health Maintenance Insurance [facility] Advance Directives Documents on File Type Date Recorded Patient Gas Derrick Operator Expl anation Health Care Proxy 05/08/2019 12:45 PM 05/07 * Full Code (Latest Code Status on File) Date Activated Date Inactivated Comments 05/21/2020 10:42 AM 05/21/2020 2:56 PM * Presumed Full Code Date Activated Date Inactivated Comments 08/23/2018 12:19 PM 08/23/2018 6:37 PM * Full Code Date Activated Date Inactivated Comments 08/23/2018 10:56 AM 08/23/2018 12:19 PM Care Teams Jigger Crown Pouncing Machine Operator Relationship Specialty Start Date End Date Ani Farley NP [address] [place] [id number] [facility] - General 04/28/17
--- OUTSIDE RECORDS SUMMARY | 2025-02-18 11:35 | XMS_ITS | Continuity of Care Document ---
Author Organization Pablo Hamm [facility] Address [address] [facility] [address] [place] [address] Phone Care Team Providers Care Agency Legal Counsel Name Role Phone Miguelito IRAIDAAni Unavailable Unavailable Allergies, Adverse Reactions, Alerts Substance Reaction Status Criticality aspirin Nausea Active No Information aspirin Vomiting Active No Information Medications Medication Instructions Dosage Effective Dates (start - stop) Status Comments metformin ER 500 mg tablet,extended release 24 hr take 1 tablet by oral route 2 times every day with meals. - Active Keagan Gaona, hydrochlorothiazide 25 mg tablet TAKE 1/2 TABLET ( 12.5 mg tota ) BY MOUTH DAILY - Active 06-06-23: dose decreased Diflucan 150 mg tablet take 1 tablet by oral route once daily 150 MG - Active Gyne-Lotrimin 7 1 % vaginal cream apply once at bedtime to affected area for 1 week - Active Shingrix (PF) 50 mcg/0.5 mL intramuscular suspension, kit inject 0.5 milliliter by intramuscular route once 50 MCG - Active amlodipine 5 mg tablet take 1 tablet (5MG) by oral route every day - Active Vitamin D3 25 mcg (1,000 unit) capsule TAKE TWO CAPSULES BY MOUTH DAILY - Active multivitamin tablet take 1 tablet by oral route every day with food - Active losartan 100 mg tablet take 1 tablet by oral route every day 100 MG - Active atorvastatin 40 mg tablet take 1 tablet by oral route every day 40 MG - Active OneTouch Ultra Test strips Test 2 times a day ( fasting and 2 hrs after meal ) - Active OneTouch Delica Lancets 33 gauge test 2 times a day ( fasting and 2 hrs after meal ) - Active Procedures Procedure Date OFFICE/OUTPATIENT VISIT, EST Nurse Assesment GLUCOSE BLOOD TEST GLYCATED HEMOGLOBIN TEST GLUCOSE BLOOD TEST OFFICE/OUTPATIENT VISIT, EST OFFICE/OUTPATIENT VISIT, EST GLUCOSE BLOOD TEST OFFICE/OUTPATIENT VISIT, EST GLUCOSE BLOOD TEST GLYCATED HEMOGLOBIN TEST PREV VISIT, EST, 65 & OVER OFFICE/OUTPATIENT VISIT, EST OFFICE/OUTPATIENT VISIT, EST TURNTABLE MAN Clinical Pharmacy GLYCATED HEMOGLOBIN TEST ELECTROCARDIOGRAM, COMPLETE OFFICE/OUTPATIENT VISIT, EST OFFICE/OUTPATIENT VISIT, EST OFFICE/OUTPATIENT VISIT, EST GLYCATED HEMOGLOBIN TEST DEBRIDE NAIL, 6 OR MORE OFFICE/OUTPATIENT VISIT, EST OFFICE/OUTPATIENT VISIT, EST OFFICE/OUTPATIENT VISIT, EST TURNTABLE MAN TURNTABLE MAN OFFICE/OUTPATIENT VISIT, EST GLUCOSE BLOOD TEST GLYCATED HEMOGLOBIN TEST OFFICE/OUTPATIENT VISIT, EST IMMUNIZATION ADMIN Influenza Vac Quad Presr Free 3 Yrs Or > GLUCOSE BLOOD TEST Obtaining screen pap smear OFFICE/OUTPATIENT VISIT, EST Moderna Covid-19 Vaccine Admin Second Do Moderna Covid-19 Vaccine 100MCG/0.5ML IM Immunization Only No E/M Required GLYCATED HEMOGLOBIN TEST OFFICE/OUTPATIENT VISIT, EST Moderna Covid-19 Vaccine Admin First Dos e Moderna Covid-19 Vaccine 100MCG/0.5ML IM Immunization Only No E/M Required Vision svcs frames purchases Lens sphcyl bifocal 4.00d/.1 FITTING OF SPECTACLES OFFICE/OUTPATIENT VISIT, EST Optical Ordering Glasses Only REFRACTION EYE EXAM & TREATMENT AUDIT/DAST, 15-30 MIN Obtaining screen pap smear OFFICE/OUTPATIENT VISIT, EST OFFICE/OUTPATIENT VISIT, EST AUDIT/DAST, 15-30 MIN OFFICE/OUTPATIENT VISIT, EST OFFICE/OUTPATIENT VISIT, EST OFFICE/OUTPATIENT VISIT, EST FluLaval Quad MDV 19 Yrs > Medicare Admin influenza virus vac Vision svcs frames purchases Lens sphcyl bifocal 4.00d/.1 FITTING OF SPECTACLES IMMUNIZATION ADMIN Shingrix vaccine OFFICE/OUTPATIENT VISIT, EST REFRACTION EYE EXAM & TREATMENT FluLaval Quad MDV 19 Yrs > OFFICE/OUTPATIENT VISIT, EST Medicare Admin influenza virus vac OFFICE/OUTPATIENT VISIT, EST BX/CURETT OF CERVIX W/SCOPE Obtaining screen pap smear Procedure Only No E/M OFFICE/OUTPATIENT VISIT, EST REFRACTION EYE EXAM & TREATMENT IMMUNIZATION ADMIN Influenza Vaccine, Quad, 3 Yrs Or > OFFICE/OUTPATIENT VISIT, EST OFFICE/OUTPATIENT VISIT, EST OFFICE/OUTPATIENT VISIT, EST OFFICE/OUTPATIENT VISIT, EST OFFICE/OUTPATIENT VISIT, EST OFFICE/OUTPATIENT VISIT, EST OFFICE/OUTPATIENT VISIT, EST BX/CURETT OF CERVIX W/SCOPE Obtaining screen pap smear OFFICE/OUTPATIENT VISIT, EST IMMUNIZATION ADMIN PNEUMOCOCCAL VACC, 13 ALONDRA IM IMMUNIZATION ADMIN, EACH ADD Influenza Vaccine, Quad, 3 Yrs Or > REFRACTION EYE EXAM & TREATMENT OFFICE/OUTPATIENT VISIT, EST IMMUNIZATION ADMIN Influenza Vaccine, Quad, 3 Yrs Or > OFFICE/OUTPATIENT VISIT, EST OFFICE/OUTPATIENT VISIT, EST Obtaining screen pap smear OFFICE/OUTPATIENT VISIT, EST OFFICE/OUTPATIENT VISIT, EST Vision svcs frames purchases FITTING OF SPECTACLES Prophylaxis-Adult Oral Hygiene Instructions Periodic Oral Evaluation-Established Pat ient PREV VISIT, EST, 65 & OVER REFRACTION EYE EXAM & TREATMENT OFFICE/OUTPATIENT VISIT, EST Intraoral-Periapical First Film 014 Intraoral-Periapical Each Additional Ovidio m Periodic Oral Evaluation-Established Pat ient Replace Broken Teeth-Per Tooth 14 Periodontal Probing Prophylaxis-Adult Oral Hygiene Instructions Nutritional Counseling For Control Of De ntal Disea OFFICE/OUTPATIENT VISIT, EST OFFICE/OUTPATIENT VISIT, EST OFFICE/OUTPATIENT VISIT, EST FITTING OF SPECTACLES Extraction, Erupted Tooth Or Exposed Caity t (Elevati REFRACTION EYE EXAM, NEW PATIENT OFFICE/OUTPATIENT VISIT, EST Periodic Oral Evaluation-Established Pat ient FLU VACCINE, 3 YRS & >, IM IMMUNIZATION ADMIN TDAP VACCINE >7 IM IMMUNIZATION ADMIN, EACH ADD OFFICE/OUTPATIENT VISIT, EST OFFICE/OUTPATIENT VISIT, EST IMMUNIZATION ADMIN FLU VACCINE, 3 YRS & >, IM IMMUNE ADMIN H1N1 IM/NASAL THER/PROPH/DIAG INJ, SC/IM Advance Directives Directive Yes / No Effective Date File Name No Information Encounters Encounter Description Practice Location Reason(s) For Visit Diagnoses Date Provider Providers Copied on Encounter [facility], [address] [place] [address] 2,[facility] [address], [place], [id number], tel:[phone] [facility] No Information 5 Miguelito Law. [address] [place] [address], [id number]. tel:[phone] [facility], [address] [facility] [address], [place], [id number], [place] tel:[phone] [facility] Type 2 diabetes mellitus with hyperglycemi a, without long-term current use of insulin 3 Miguelito Law. [address] [place] [address], [id number]. tel:[phone] OFFICE/OUTPA TIENT VISIT, EST [facility], [address] [facility] [address], [place], [place], [id number], [place] tel:[phone] [facility] Follow Up of hyperglycemi a (chief complaint)bl ood pressure (chief complaint)me dication request (chief complaint) Type 2 diabetes mellitus with hyperglycemi a, without long-term current use of insulinEsschen solimanl (primary) hypertension Sep-0 6-202 3 Miguelito Law. [address], [place], [id number]. tel:[phone] [facility], [address] [facility] [address], [place], [id number], [place] tel:[phone] [facility] Dizziness and blurry vision (chief complaint) Counseled by nurse 3 No Information Referring Provider: Ani Farley, [address] [place] [address], [address]. tel:[phone] OFFICE/OUTPA TIENT VISIT, EST [facility], [address] [place] [address] 2,[address], [place], [place], [id number], [place] tel:[phone] [facility] vaginal itch (chief complaint) Vaginitis and vulvovaginit isType 2 diabetes mellitus without complication , without long-term current use of insulin 3 Nicole Stanley. [address], [place], [id number], [place]. tel:[phone] Referring Provider: Ani Farley, [address] [place] [address], [address]. tel:[phone] OFFICE/OUTPA TIENT VISIT, EST [facility], [address] [facility] [address], [place], [place], [id number], [place] tel:[phone] [facility] chronic conditions (chief complaint) Type 2 diabetes mellitus without complication , without long-term current use of insulinChron ic left hip painEssentia l (primary) hypertension Moderate cervical dysplasia 3 Miguelito Law. [address], [place], [id number]. tel:[phone] OFFICE/OUTPA TIENT VISIT, EST [facility], [address] [facility] [address], [place], [place], [id number], [place] tel:[phone] [facility] F/U HTN (chief complaint) Essential (primary) hypertension May-1 0-202 3 Gabino Jessica. [address] [place] [address], [id number], [place]. tel:[phone] Referring Provider: Ani Farley, [address] [place] [address], [address]. tel:[phone] PREV VISIT, EST, 65 & OVER [facility], [address] [facility], [place], [place], [id number], [place] tel:[phone] [facility] preventive exam (chief complaint)ch ronic conditions (chief complaint) Chronic left hip painEssentia l (primary) hypertension Mixed hyperlipidem iaVitamin D deficiency, unspecifiedT ype 2 diabetes mellitus without complication , without long-term current use of insulinModer ate cervical dysplasiaOve [facility] Hospitalody mass index (BMI) 26.0-26.9, [facility] er for general adult medical examination with abnormal findings 3 Miguelito Law. [address] [place] [address], [id number]. tel:[phone] Referring Provider: Ani Farley, [address] [place], [address]. tel:[phone] [facility], [address] [facility] [address], [place], [place], [id number], [place] tel:[phone] [facility] No Information 3 Miguelito Law. [address], [place], [id number]. tel:[phone] OFFICE/OUTPA TIENT VISIT, EST [facility], [address] [facility],[address], [place], [place], [id number], [place] tel:[phone] [facility] dry lips (chief complaint)Bl ood pressure (chief complaint)va ricose veins concern (chief complaint)ch ronic conditions (chief complaint)ch ronic conditions (chief complaint) Essential (primary) hypertension Type 2 diabetes mellitus without complication , without long-term current use of insulinAsymp tomatic varicose veins Sep-2 1-202 2 Miguelito Law. [address], [place], [id number]. tel:[phone] OFFICE/OUTPA TIENT VISIT, EST [facility], [address] [facility] [address], [place], [place], [id number], [place] tel:[phone] [facility] chronic conditions (chief complaint) Essential (primary) hypertension LVH (left ventricular hypertrophy) Sinus arrhythmia seen on electrocardi ogram 2 Miguelito Law. [address], [place], [id number]. 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 tel:[phone] [facility], [address] [facility] [address], [place], [place], [id number], [place] tel:[phone] [facility] medication management (chief complaint) Medication management 2 Pharmacy Clinical. . Consulting Provider: Claudia Sheth, [address] [place] [address], [address]. tel:[phone] OFFICE/OUTPA TIENT VISIT, EST [facility], [address] [facility] [address], [place], [place], [id number], [place] tel:[phone] [facility] chronic conditions (chief complaint)fa ll the down the stairs (chief complaint) Chronic left hip painOther chronic painBilatera l leg weaknessEsse ntial (primary) hypertension Sinus arrhythmia seen on electrocardi ogramLVH (left ventricular hypertrophy) Mixed hyperlipidem iaType 2 diabetes mellitus without complication , without long-term current use of insulinOverw eightBody mass index (BMI) 26.0-26.9, adult 2 Miguelito Law. [address], [place], [id number]. tel:[phone] Referring Provider: Ani Farley, [address] [place], [address]. tel:[phone] OFFICE/OUTPA TIENT VISIT, [facility], [address] [facility] [address], [place], [place], [id number], [place] tel:[phone] [facility] leg pain (chief complaint)di zziness (chief complaint)ch ronic conditions (chief complaint)ch ronic conditions (chief complaint) Type 2 diabetes mellitus without complication , without long-term current use of insulinDizzi nessPrimary osteoarthrit is involving multiple joints Jan- 2 Miguelito Law. [address], [place], [id number]. tel:[phone] [facility], [address] [facility] [address], [place], [place], [id number], [place] tel:[phone] [facility] No Information 2 Miguelito Duckworthna. [address], [place], [id number]. tel:[phone] OFFICE/OUTPA TIENT VISIT, [facility], [address] [facility] [address], [place], [place], [id number], [place] tel:[phone] [facility] chronic conditions (chief complaint) Type 2 diabetes mellitus without complication , without long-term current use of insulinEssen tial (primary) hypertension 2 Miguelito Duckworthna. [address], [place], [id number]. tel:[phone] OFFICE/OUTPA TIENT VISIT, [facility], [address] [facility] [address], [place], [place], [id number], [place] tel:[phone] [facility] diabetic foot care (chief complaint) Tinea unguiumType 2 diabetes mellitus without complication , without long-term current use of insulin 2 Jennifer Rodríguez. [address], [place], [id number]. tel:[phone] Referring Provider: Ani Farley, [address] [place], [address]. tel:[phone] OFFICE/OUTPA TIENT VISIT, [facility], [address] [facility] [address], [place], [place], [id number], [place] tel:[phone] [facility] F/U DM teaching AND HTN (chief complaint) Type 2 diabetes mellitus without complication , without long-term current use of insulinEssen tial (primary) hypertension 2 [place] [employer]. [address] [place] [address], [id number], [place]. tel:[phone] OFFICE/OUTPA TIENT VISIT, [facility], [address] [facility] [address], [place], [place], [id number], [place] tel:[phone] [facility] F/U DM and HTN/ Glucometer teaching (chief complaint) Essential (primary) hypertension Type 2 diabetes mellitus without complication , without long-term current use of insulin 1 [employer] [employer]. [address] [place] [address], [id number], [place]. 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 . OFFICE/OUTPA TIENT VISIT, EST [facility], [address] [facility] [address], [place], [place], [id number], [place] tel:[phone] [facility] F/U DM and glucometer teaching (chief complaint) Essential (primary) hypertension Type 2 diabetes mellitus without complication , without long-term current use of insulin 1 Maximiliano De La aPz. [address] [place] [address], [id number], [place]. tel:[phone] OFFICE/OUTPA TIENT VISIT, EST [facility], [address] [facility] [address], [place], [place], [id number], [place] tel:[phone] [facility] chronic conditions (chief complaint) Essential (primary) hypertension Type 2 diabetes mellitus without complication s 1 Miguelito Law. [address] [place] [address], [id number]. tel:[phone] Referring Provider: Ani Farley, [address] [place] [address], [address]. tel:[phone] OFFICE/OUTPA TIENT VISIT, EST [facility], [address] [facility] [address], [place], [place], [id number], [place] tel:[phone] [facility] dizziness (chief complaint)pa p smear (chief complaint)ch ronic conditions (chief complaint)ch ronic conditions (chief complaint) Abnormal Pap Smear Of CervixType 2 diabetes mellitus without complication sCervicalgia Essential (primary) hypertension Mixed hyperlipidem iaDizziness 1 Miguelito Law. [address] [place] [address], [id number]. tel:[phone] Referring Provider: Ani Farley, [address] [place] [address], [address]. tel:[phone] [facility], [address] [facility] [address], [place], [place], [id number], [place] tel:[phone] [facility] Neck pain 1 Miguelito Law. [address], [place], [id number]. tel:[phone] [facility], [address] [facility],[address], [place], [place], [id number], [place] tel:[phone] [facility] covid vax (chief complaint) Encounter for immunization 1 No Information OFFICE/OUTPA TIENT VISIT, EST [facility], [address] [facility] [address], [place], [place], [id number], [place] tel:[phone] [facility] Follow Up of neck pain (chief complaint)Fo llow Up of Breast tenderness (chief complaint)ch ronic conditions (chief complaint)ch ronic conditions (chief complaint) Mixed hyperlipidem iaEssential (primary) hypertension Impaired fasting glucoseType 2 diabetes mellitus without complication , without long-term current use of insulinNeck pain, chronicOther chronic painCervical high risk HPV DNA test positiveScre ening for malignant neoplasm of breastOverwe ightBody mass index (BMI) 27.0-27.9, adult 1 Miguelito Law. [address], [place], [id number]. tel:[phone] Referring Provider: Ani Farley, [address] [place], [address]. tel:[phone] [facility], [address] [facility] [address], [place], [place], [id number], [place] tel:[phone] [facility] med reconciliati on (chief complaint) Age-related osteoporosis without current pathological fractureEnco unter for immunization Counseled by nurse 1 No Information [facility], [address] [facility] [address], [place], [place], [id number], [place] tel:[phone] [facility] No Information 1 Enzo Hernandez. [address] [place], [place], [id number], [place]. tel:[phone] OFFICE/OUTPA TIENT VISIT, EST [facility], [address] [facility] [address], [place], [place], [id number], [place] tel:[phone] [facility] neck pain. (chief complaint) Neck pain Dec- 0- 1 Jj Hampton. [address] [place], [place], [id number], [place]. tel:[phone] [facility], [address] [facility] [address], [place], [place], [id number], [place] tel:[phone] [facility] No Information Dec-0 1 No Information [facility], [address] [facility] [address], [place], [place], [id number], [place] tel:[phone] [facility] itching eyes (chief complaint) Hyperopia with presbyopia of both eyesKeratoco njunctivitis sicca of both eyesCombined forms of age-related cataract of both eyesEndothel ial corneal dystrophy of both eyes Dec-0 1 Enzo Hernandez. [address] [place], [place], [id number], [place]. tel:[phone] OFFICE/OUTPA TIENT VISIT, EST [facility], [address] [facility] [address], [place], [place], [id number], [place] tel:[phone] [facility] Follow Up of neck pain (chief complaint)pa p smear (chief complaint)pr eventive exam (chief complaint)ch ronic conditions (chief complaint) Essential (primary) hypertension Encntr for mobile disc jockey exam (general) (routine) w/o abn findingsLich en sclerosus et atrophicus of the vulva 0 Miguelito Law. [address] [place] [address], [id number]. tel:[phone] Referring Provider: Ani Farley, [address] [place] [address], [address]. tel:[phone] OFFICE/OUTPA TIENT VISIT, [facility], [address] [facility] [address], [place], [place], [id number], [place] tel:[phone] [facility] Follow Up of neck pain (chief complaint)Fo llow Up of headache (chief complaint) CervicalgiaT ension headache 0 Miguelito Law. [address] [place] [address], [id number]. tel:[phone] OFFICE/OUTPA TIENT VISIT, [facility], [address] [facility] [address], [place], [place], [id number], [place] tel:[phone] [facility] neck pain (chief complaint)ch ronic conditions (chief complaint)to oth pain (chief complaint)ch ronic conditions (chief complaint) Mixed hyperlipidem iaEssential (primary) hypertension CervicalgiaT ooth painPoor appetite 0 Miguelito Law. [address] [place] [address], [id number]. tel:[phone] OFFICE/OUTPA TIENT VISIT, [facility], [address] [facility] [address], [place], [place], [id number], [place] tel:[phone] [facility] shoulder pain (chief complaint) Other chronic painChronic left shoulder painCervical benjie 0 Miguelito Law. [address] [place] [address], [id number]. tel:[phone] OFFICE/OUTPA TIENT VISIT, [facility], [address] [facility] [address], [place], [place], [id number], [place] tel:[phone] [facility] chronic conditions (chief complaint) Mixed hyperlipidem iaImpaired fasting glucoseEssen tial (primary) hypertension Vitamin D deficiency, unspecifiedM oderate cervical dysplasia 0 9 Miguelito Law. [address] [place] [address], [id number]. tel:[phone] [facility], [address] [facility] [address], [place], [place], [id number], [place] tel:[phone] [facility] Cervical high risk HPV DNA test positive 9 Miguelito Law. [address] [place] [address], [id number]. tel:[phone] [facility], [address] [facility] [address], [place], [place], [id number], [place] tel:[phone] [facility] No Information 9 No Information OFFICE/OUTPA TIENT VISIT, EST [facility], [address] [facility] [address], [place], [place], [id number], [place] tel:[phone] [facility] chronic conditions (chief complaint)he adache (chief complaint)fo ot pain (chief complaint) Mixed hyperlipidem iaEssential (primary) hypertension Moderate cervical dysplasia 9 Miguelito Law. [address] [place] [address], [id number]. tel:[phone] [facility], [address] [facility] [address], [place], [place], [id number], [place] tel:[phone] [facility] itchy eyes (chief complaint) Dry eyesHyperopi a of both eyes with astigmatism and presbyopiaMi xed type age-related cataract, both eyes 9 Enzo Hernandez. [address] [place] [address], [id number], [place]. tel:[phone] OFFICE/OUTPA TIENT VISIT, EST [facility], [address] [facility] [address], [place], [place], [id number], [place] tel:[phone] [facility] chronic conditions (chief complaint) Mixed hyperlipidem iaEssential (primary) hypertension Vitamin D deficiency, unspecifiedP ain in unspecified shoulderChro levon right shoulder painCIN II (cervical intraepithel ial neoplasia II) 9 Miguelito Ani. [address], [place], [id number]. tel:[phone] OFFICE/OUTPA TIENT VISIT, EST Pablo [facility], [address] [facility] [address], [place], [place], [id number], [place] tel:[phone] [facility] chronic conditions (chief complaint)sk in lesion (chief complaint) Screening for malignant neoplasm of intestineMix ed hyperlipidem iaEssential (primary) hypertension NADYA II (cervical intraepithel ial neoplasia II) 8 Miguelitomarlon Law. [address] [place] [address], [id number]. tel:[phone] [facility], [address] [facility] [address], [place], [place], [id number], [place] tel:[phone] [facility] Follow Up of Pap/ECC (chief complaint) Encounter for gynecologica l examination (general) (routine) with abnormal findingsCerv ical high risk HPV DNA test positive 8 Tricia Mehta. [address] [place] [address], [id number]. tel:[phone] Referring Provider: Janine Clarke, [address] [place] [address], [id number]. tel:[phone] [facility], [address] [facility] [address], [place], [place], [id number], [place] tel:[phone] [facility] shoulder pain (chief complaint)Fo llow Up of Abnormal pap (chief complaint)HC M (chief complaint) Screening for malignant neoplasm of intestineChr onic pain of both shouldersCer vical high risk HPV DNA test positiveEsse ntial (primary) hypertension Jan- 8 Miguelito Law. [address], [place], [id number]. tel:[phone] [facility], [address] [facility] [address], [place], [id number], [place] tel:[phone] [facility] Itching (chief complaint) Hyperopia with presbyopia of both eyesPresbyop iaSenile cataract, unspecified 7 Ladan Lowe. [address] [place], [place], [id number]. tel:[phone] OFFICE/OUTPA TIENT VISIT, [facility], [address] [facility] [address], [place], [place], [id number], [place] tel:[phone] [facility] abdominal pain (chief complaint) Mild acid refluxCornea l ulcer of left eyeCervical high risk HPV DNA test positiveScre ening for malignant neoplasm of breast 7 Miguelito Law. [address] [place] [address], [id number]. tel:[phone] OFFICE/OUTPA TIENT VISIT, [facility], [address] [facility] [address], [place], [id number], [place] tel:[phone] [facility] abdominal pain (chief complaint) Constipation , unspecified constipation typeBloating Miguelito Law. [address] [place] [address], [id number]. tel:[phone] OFFICE/OUTPA TIENT VISIT, [facility], [address] [facility] [address], [place], [place], [id number], [place] tel:[phone] [facility] oral lesion (chief complaint)ch ronic conditions (chief complaint) Chronic pain of both shouldersPre sbyopia OUCyst of oral soft tissueCornea l ulcer of left eyeCervical high risk HPV DNA test positive Miguelito Law. [address] [place] [address], [id number]. tel:[phone] OFFICE/OUTPA TIENT VISIT, [facility], [address] [facility] [address], [place], [id number], [place] tel:[phone] [facility] f/u corneal ulcer (chief complaint) Corneal ulcer of left eye February-0 7 No Information OFFICE/OUTPA TIENT VISIT, [facility], [address] [facility] [address], [place], [place], [id number], [place] tel:[phone] [facility] f/u for corneal ulcer (chief complaint) Corneal ulcer of left eye Jan-2 7 No Information OFFICE/OUTPA TIENT VISIT, [facility], [address] [facility] [address], [place], [place], [id number], [place] tel:[phone] [facility] redness (chief complaint) Corneal ulcer of left eyeDry eyes, bilateral Jan- 7 No Information OFFICE/OUTPA TIENT VISIT, [facility], [address] [facility] [address], [place], [place], [id number], [place] tel:[phone] [facility] chronic conditions (chief complaint)co ld symptoms (chief complaint) Impaired fasting glucosePruri tus vulvaeMixed hyperlipidem iaEssential (primary) hypertension Nasal congestionCh ronic pain of both shoulders 7 Miguelito Law. [address], [place], [id number]. tel:[phone] [facility], [address] [facility] [address], [place], [place], [id number], [place] tel:[phone] [facility] +HRHPV x 2 (chief complaint) Cervical high risk HPV DNA test positiveChro levon pain of both shoulders 6 Kosteliborio Mehta. [address], [place], [id number]. tel:[phone] OFFICE/OUTPA TIENT VISIT, [facility], [address] [facility] [address], [place], [place], [id number], [place] tel:[phone] [facility] chronic conditions (chief complaint)Fo llow Up of shoulder pain (chief complaint) Chronic pain of both shouldersEss ential (primary) hypertension PrediabetesS creening for endocrine, metabolic and immunity disorderMixe d hyperlipidem iaAge-relate d osteoporosis without current pathological fractureEnco unter for gynecologica l examination (general) (routine) without abnormal findings 6 Miguelitomarlon Duckworthna. [address] [place] [address], [id number]. tel:[phone] [facility], [address] [facility] [address], [place], [place], [id number], [place] tel:[phone] [facility] Screening for malignant neoplasm of breast 6 Miguelito Ani. [address] [place] [address], [id number]. tel:[phone] [facility], [address] [facility] [address], [place], [place], [id number], [place] tel:[phone] [facility] routine exam (chief complaint) Dry eyes, bilateralPre sbyopia OUVision exam with abnormal findings 0 6 No Information [facility], [address] [facility] [address], [place], [place], [id number], [place] tel:[phone] [facility] Chronic left shoulder painOther chronic pain Sep- 6 Miguelito Ani. [address] [place] [address], [id number]. tel:[phone] OFFICE/OUTPA TIENT VISIT, EST [facility], [address] [facility] [address], [place], [place], [id number], [place] tel:[phone] [facility] chronic conditions (chief complaint)Al lergies (chief complaint)sh oulder pain (chief complaint) Chronic right shoulder painPruritus vulvaeEssent ial (primary) hypertension Other allergic rhinitis 6 Miguelito Law. [address], [place], [id number]. tel:[phone] OFFICE/OUTPA TIENT VISIT, [facility] Pablo [facility], [address] [facility] [address], [place], [place], [id number], [place] tel:[phone] [facility] Hypertension (follow up) (chief complaint)co ld symptoms (chief complaint)de creased appetite (chief complaint)Fo llow Up of Musculoskele daniel pain (chief complaint) Bilateral arm painEssentia l hypertension Other allergic rhinitis 5 Miguelito Law. [address], [place], [id number]. tel:[phone] OFFICE/OUTPA TIENT VISIT, [facility] Pablo [facility], [address] [facility] [address], [place], [place], [id number], [place] tel:[phone] [facility] Musculoskele daniel Pain (chief complaint)hy pertension (chief complaint) Bilateral arm painEssentia l hypertension 5 No Information OFFICE/OUTPA TIENT VISIT, [facility] Pablo [facility], [address] [facility] [address], [place], [place], [id number], [place] tel:[phone] [facility] pap (chief complaint)Hy pertension (follow up) (chief complaint)Hy perlipidemia (follow up) (chief complaint)Fo llow Up of prediabetes (chief complaint) Gynecologica l ExaminationH ypertension, UnspecifiedI MPAIRED FASTING GLUCOSEMixed Hyperlipidem iaScreening for malignant neoplasm of breast 5 Miguelito Law. [address], [place], [id number]. tel:[phone] OFFICE/OUTPA TIENT VISIT, [facility], [address] [facility] [address], [place], [place], [id number], [place] tel:[phone] [facility] Hypertension (follow up) (chief complaint)chidi int pain (chief complaint)Hy perlipidemia (follow up) (chief complaint)HC M (chief complaint) Hypertension , UnspecifiedM ixed Hyperlipidem iaPrediabete sScreening for malignant neoplasm of breastPrurit us of genital organs 5 Miguelito Law. [address], [place], [id number]. tel:[phone] [facility], [address] [facility] [address], [place], [place], [id number], [place] tel:[phone] [facility] No Information 5 No Information [facility], [address] [facility] [address], [place], [place], [id number], [place] tel:[phone] [facility] 5 No Information PREV VISIT, EST, 65 & OVER [facility], [address] [facility] [address], [place], [place], [id number], [place] tel:[phone] [facility] back pain (chief complaint)pr eventive exam (chief complaint)ch ronic conditions (chief complaint) ROUTINE MEDICAL EXAMHyperten jaylin, UnspecifiedI MPAIRED FASTING GLUCOSEMixed Hyperlipidem iaScreening for malignant neoplasm of breast 5 Miguelito Law. [address], [place], [id number]. tel:[phone] [facility], [address] [facility] [address], [place], [place], [id number], [place] tel:[phone] [facility] routine eye exam (chief complaint) Dry Eye SyndromePres byopiaSenile nuclear sclerosisVit reous degeneration 5 No Information OFFICE/OUTPA TIENT VISIT, EST [facility], [address] [facility] [address], [place], [place], [id number], [place] tel:[phone] [facility] chronic conditions (chief complaint)he adache (chief complaint) Generalized pruritusHype rtension, UnspecifiedI MPAIRED FASTING GLUCOSEOsteo porosisRash of perineumMixe d Hyperlipidem ia 4 Miguelito Law. [address], [place], [id number]. tel:[phone] [facility], [address] [facility] [address], [place], [place], [id number], [place] tel:[phone] [facility] No Information 4 Miguelito Law. [address], [place], [id number]. tel:[phone] [facility], [address] [facility] [address], [place], [place], [id number], [place] tel:[phone] [facility] 4 No Information [facility], [address] [facility] [address], [place], [place], [id number], [place] tel:[phone] [facility] 4 No Information [facility], [address] [facility],[address], [place], [place], [id number], [place] tel:[phone] [facility] examination 4 No Information OFFICE/OUTPA TIENT VISIT, EST [facility], [address] [facility],[address], [place], [place], [id number], [place] tel:[phone] [facility] itchiness (chief complaint) Generalized pruritusSebo rrheic keratosis 4 Nicole Stanley. [address], [place], [id number], [place]. tel:[phone] OFFICE/OUTPA TIENT VISIT, EST [facility], [address] [facility],[address], [place], [place], [address], [place] tel:[phone] [facility] folliculitis (chief complaint)ch ronic conditions (chief complaint) Unspecified vitamin d deficiencyIM PAIRED FASTING GLUCOSEPruri tus of genital organsMixed Hyperlipidem iaHypertensi on, UnspecifiedR holland of perineum 4 Miguelito Law. [address], [place], [id number]. tel:[phone] OFFICE/OUTPA TIENT VISIT, EST [facility], [address] [facility] [address], [place], [place], [id number], [place] tel:[phone] [facility] chronic conditions (chief complaint)ra sh (chief complaint)he aring loss (chief complaint) Hypertension , UnspecifiedP ruritus of genital organsUnspec ified vitamin d deficiencyFo lliculitis of perineumHear ing loss in left ear 3 Miguelito Law. [address], [place], [id number]. tel:[phone] [facility], [address] [facility] [address], [place], [place], [id number], [place] tel:[phone] [facility] No Information 3 No Information [facility], [address] [facility] [address], [place], [place], [id number], [place] tel:[phone] [facility] examination 3 No Information [facility], [address] [facility] [address], [place], [place], [id number], [place] tel:[phone] [facility] a comprehensiv e exam (chief complaint) Regular astigmatismP resbyopiaTea r film insufficienc y, unspecifiedO ther chronic allergic conjunctivit is 3 No Information OFFICE/OUTPA TIENT VISIT, EST [facility], [address] [facility] [address], [place], [place], [id number], [place] tel:[phone] [facility] chronic conditions (chief complaint)ma mmo (chief complaint)mo le on chest (chief complaint)rt thumb nail (chief complaint) Osteoporosis Pruritus of genital organsHypert ension, UnspecifiedM ixed Hyperlipidem iaIMPAIRED FASTING GLUCOSEScree lucrecia for malignant neoplasm of breastNail abnormality 3 Miguelito Law. [address], [place], [id number]. tel:[phone] [facility], [address] [facility] [address], [place], [place], [id number], [place] tel:[phone] [facility] 3 No Information OFFICE/OUTPA TIENT VISIT, EST [facility], [address] [facility] [address], [place], [place], [address], [place] tel:[phone] [facility] F/u care (chief complaint)hy pertension (follow up) (chief complaint)ch est mole (chief complaint) Hypertension , UnspecifiedO steoporosisP ruritus of genital organsUnspec ified vitamin d deficiencySc reening for malignant neoplasm of breastSkin abnormalityI nfluenza VaccineNEED FOR PROPHYLACTIC VACCINATION WITH COMBINED DIPHTHERIA-T ETANUS-PERTU SSIS (DTP) (DTAP) VACCINE 3 Miguelitomarlon Law. [address] [place] [address], [id number]. tel:[phone] OFFICE/OUTPA TIENT VISIT, EST [facility], [address] [facility] [address], [place], [place], [id number], [place] tel:[phone] [facility] vaginal itching (chief complaint)hy pertension (follow up) (chief complaint) Hypertension , UnspecifiedM ixed Hyperlipidem iaPruritus of genital organsOsteop orosisIMPAIR ED FASTING GLUCOSEHyper tension, BenignOther specified congenital anomalies of skin 2 Miguelito Law. [address] [place] [address], [id number]. tel:[phone] [facility], [address] [facility] [address], [place], [place], [id number], [place] tel:[phone] [facility] No Information 1 Miguelito Law. [address] [place] [address], [id number]. tel:[phone] [facility], [address] [facility] [address], [place], [place], [id number], [place] tel:[phone] [facility] IMPAIRED FASTING GLUCOSE May-0 1 Miguelito Law. [address] [place] [address], [id number]. tel:[phone] [facility], [address] [facility] [address], [place], [place], [address], [place] tel:[phone] [facility] Pain in joint involving shoulder region 0 1 Miguelito Law. [address] [place] [address], [id number]. tel:[phone] [facility], [address] [facility],[address], [place], [place], [address], [place] tel:[phone] [facility] Other ill-defined disorders of eye Sep-0 0 Miguelito Law. [address] [place] [address], [id number]. tel:[phone] [facility], [address] [facility],[address], [place], [place], [address], [place] tel:[phone] [facility] No Information Dec-0 0 Miguelito Law. [address] [place] [address], [id number]. tel:[phone] [facility], [address] [facility] [address], [place], [place], [id number], [place] tel:[phone] [facility] No Information 0 200 9 No Information [facility], [address] [facility],[address], [place], [place], [id number], [place] tel:[phone] [facility] Pruritus of genital organs Oct-0 8200 9 No Information [facility], [address] [facility] [address], [place], [place], [address], [place] tel:[phone] [facility] Osteoporosis , unspecified 8 Miguelito Law. [address] [place] [address], [id number]. tel:[phone] [facility], [address] [facility],[address], [place], [place], [address], [place] tel:[phone] [facility] Unspecified vitamin d deficiency 8 Miguelito Law. [address], [place], [id number]. tel:[phone] [facility], [address] [facility],[address], [place], [place], [address], [place] tel:[phone] [facility] Mixed hyperlipidem ia 6 Miguelito Law. [address] [place] [address], [id number]. tel:[phone] [facility], [address] [facility] [address], [place], [place], [address], [place] tel:[phone] [facility] Benign essential hypertension Routine general medical examination at a health care facility 3 Z-Converted Provider. . Family History Family Member Type Diagnosis Age At Onset FH - FATHER (DDMS) Problem (finding) complications of diabetes FH - SIBLINGS (DDMS) Problem (finding) complications o f diabetes FH - MOTHER (DDMS) Problem (finding) unknown Immunizations Vaccine Date Status Comments Td (adult), adsorbed not administered Not e: Out of Stock ; Source: New Immunization Record Flu Quad PF administered Source : New Immunization Record Moderna COVID-19 Vaccine (18 yrs +) administered Source: New Immuniza tion Record Moderna COVID-19 Vaccine (18 yrs +) administered Source: New Immuniza tion Record Flu Quad MDV (>/= 6 mo) 0.5ml administered Source: New Immuniza tion Record Zoster recombinant subunit, preservative free administered Source: New Immuniza tion Record Influenza Quad MDV 0.5ml administered Source: New Immuniza tion Record Influenza, injectable, quadrivalent, split virus, 3 years or older Flulaval Quad administered Source: New Immuniza tion Record Influenza, injectable, quadrivalent, split virus, 3 years or older Flulaval Quad administered Source: New Immuniza tion Record Pneumococcal conjugate PCV 13 administered Source: New Immuniza tion Record Influenza, split virus, injectable, quadrivalent, 3 years or older Fluzone Quad administered Source: New Immuniza tion Record Tdap administered Source: New Imm unization Record Flu (split) (3 yrs or older) administered Source: New Immunization Record INFLUENZA VACCINE AGE 3 AND ABOVE administered Source: New Immuniza tion Record Influenza Vaccine administered Source: Ne w Immunization Record H1N1 INJECTION administered Source: New I mmunization Record PNEUMOVAX (PCV23) administered Source: Ne w Immunization Record INFLUENZA VACCINE AGE 3 AND ABOVE administered Source: New Immuniza tion Record INFLUENZA VACCINE AGE 3 AND ABOVE administered Source: New Immuniza tion Record Tetanus and Diphtheria Toxoid administered Source: New Immuniza tion Record Payers Payer name Insurance type Covered constitution party ID Authoriza tion(s) [employer] CI [id number] [facility] [employer] C ommunity P CI [id number] [employer] C ommunity P CI [id number] [employer] C ommunity P CI [id number] [employer] C ommunity P CI [id number] [employer] C ommunity P CI [id number] [employer] C ommunity P CI [id number] [employer] C ommunity P CI [id number] [employer] C ommunity P CI [id number] [facility] [employer] C ommunity P CI [id number] [facility] [employer] C ommunity P CI [id number] Social History Type Description Quantity Date Captured Comments Alcohol Use Details Unknown Caffeine Use Details Unknown Tobacco Use Status No Information Smoking Status No Information Sex Female Sexual Orientation Straight or heterosexual Gender Identity Female Chief Complaint And Reason For Visit No Information Reason For Referral Reason For Referral No Information Plan Of Treatment Date Type Action Status Goal Pneumococcal vac cine. Due on due Goal Diabetes Screening. Due on A due Goal Dental exam. Due on due Goal Zoster vaccine (1st) due Goal LDL Cholesterol (Direct). Due on due Goal Dilated eye exam. Due on Jan due Goal Unhealthy drug u se screening. Due on due Goal Lipid panel. Due on 024 due Goal DEXA scan. Due on due Goal Hemoglobin A1C. Due on due Goal Foot exam. Due on due Goal GFR. Due on due Goal Monofilament Exam. Due on Ap due Goal Urine microalbumin. Due on N due Goal Zoster vaccine ( ). Due on due Goal Document SOGI In formation. Due on due Goal Td vaccine. Due on due Goal Influenza vaccine. Due on No due Goal Pneumococcal vac cine. Due on due Goal Monofilament Exam. Due on due Goal Zoster vaccine ( 2nd). Due on due Goal Document SOGI In formation. Due on due Goal Unhealthy drug u se screening. Due on due Goal Foot exam. Due on due Goal Diabetes Screening. Due on A due Goal GFR. Due on due Goal Influenza vaccine. Due on due Goal Hemoglobin A1C. Due on due Goal Dental exam. Due on 023 due Goal Td vaccine. Due on due Goal Zoster vaccine (1st) due Goal DEXA scan. Due on due Goal Dilated eye exam. Due on Aug due Goal Lipid panel. Due on 024 due Goal Urine microalbumin. Due on N due Goal LDL Cholesterol (Direct). Due on due Goal Influenza vaccine. Due on due Goal Monofilament Exam. Due on Se due Goal LDL Cholesterol (Direct). Due on due Goal Dilated eye exam. Due on Jun due Goal GFR. Due on due Goal Dental exam. Due on 023 due Goal DEXA scan. Due on due Goal Document SOGI In formation. Due on due Goal Pneumococcal vac cine. Due on due Goal Zoster vaccine ( 2nd). Due on due Goal Lipid panel. Due on due Goal Td vaccine. Due on due Goal Unhealthy drug u se screening. Due on due Goal Hemoglobin A1C. Due on due Goal Zoster vaccine (1st) due Goal Urine microalbumin. Due on N due Goal Diabetes Screening. Due on A due Goal Foot exam. Due on due Goal Diabetes Screening. Due on A due Goal Lipid panel. Due on due Goal Document SOGI In formation. Due on due Goal LDL Cholesterol (Direct). Due on due Goal Zoster vaccine (1st) due Goal Zoster vaccine ( 2nd). Due on due Goal Foot exam. Due on due Goal Dental exam. Due on due Goal Unhealthy drug u se screening. Due on due Goal Urine microalbumin. Due on N due Goal Hemoglobin A1C. Due on due Goal Influenza vaccine. Due on due Goal Monofilament Exam. Due on due Goal Td vaccine. Due on due Goal GFR. Due on due Goal Pneumococcal vac cine. Due on due Goal DEXA scan. Due on due Goal Dilated eye exam. Due on May due Goal Influenza vaccine. Due on No due Goal Urine microalbumin. Due on N due Goal Hemoglobin A1C. Due on due Goal Lipid panel. Due on due Goal Diabetes Screening. Due on A due Goal LDL Cholesterol (Direct). Due on due Goal GFR. Due on due Goal Foot exam. Due on due Goal DEXA scan. Due on due Goal Dilated eye exam. Due on May due Goal Zoster vaccine ( 2nd). Due on due Goal Pneumococcal vac cine. Due on due Goal Zoster vaccine () due Goal Document SOGI In formation. Due on due Goal Unhealthy drug u se screening. Due on due Goal Dental exam. Due on due Goal Monofilament Exam. Due on due Goal Td vaccine. Due on due Goal Unhealthy drug u se screening. Due on due Goal Td vaccine. Due on due Goal Zoster vaccine (1st) due Goal Lipid panel. Due on due Goal Hemoglobin A1C. Due on due Goal Monofilament Exam. Due on Ju due Goal Zoster vaccine ( 2nd). Due on due Goal LDL Cholesterol (Direct). Due on due Goal Urine microalbumin. Due on N due Goal Pneumococcal vac cine. Due on due Goal Document SOGI In formation. Due on due Goal GFR. Due on due Goal Dental exam. Due on 023 due Goal DEXA scan. Due on due Goal Dilated eye exam. Due on Mar due Goal Influenza vaccine. Due on due Goal Foot exam. Due on due Goal Diabetes Screening. Due on due Goal GFR. Due on due Goal Influenza vaccine. Due on due Goal Td vaccine. Due on 23 due Goal DEXA scan. Due on 3 due Goal Monofilament Exam. Due on due Goal Foot exam. Due on 3 due Goal Hemoglobin A1C. Due on due Goal Dental exam. Due on 023 due Goal Pneumococcal vac cine. Due on due Goal Zoster vaccine ( 2nd). Due on due Goal Urine microalbumin. Due on N due Goal Lipid panel. Due on 024 due Goal Dilated eye exam. Due on February due Goal Diabetes Screening. Due on M due Goal Zoster vaccine (1st) due Goal Unhealthy drug u se screening. Due on due Goal LDL Cholesterol (Direct). Due on due Goal Document SOGI In formation. Due on due Goal DEXA scan. Due on due Goal Unhealthy drug u se screening. Due on due Goal Urine microalbumin. Due on N due Goal Dental exam. Due on 023 due Goal Dilated eye exam. Due on Dec due Goal Zoster vaccine ( ). Due on due Goal Td vaccine. Due on due Goal Pneumococcal vac cine. Due on due Goal Document SOGI In formation. Due on due Goal Foot exam. Due on due Goal Zoster vaccine (1st) due Goal Monofilament Exam. Due on Ma due Goal Influenza vaccine. Due on due Goal Hemoglobin A1C. Due on due Goal Diabetes Screening. Due on M due Goal Dental exam. Due on 023 due Goal Unhealthy drug u se screening. Due on due Goal Zoster vaccine (1st) due Goal Monofilament Exam. Due on due Goal Dilated eye exam. Due on Nov due Goal DEXA scan. Due on due Goal Td vaccine. Due on due Goal GFR. Due on due Goal Influenza vaccine. Due on No due Goal Pneumococcal vac cine. Due on due Goal Urine microalbumin. Due on N due Goal Diabetes Screening. Due on due Goal Zoster vaccine ( ). Due on due Goal Foot exam. Due on due Goal LDL Cholesterol (Direct). Due on due Goal Hemoglobin A1C. Due on due Goal Document SOGI In formation. Due on due Goal Unhealthy drug u se screening. Due on due Goal Dilated eye exam. Due on Jun due Goal Influenza vaccine. Due on No due Goal Td vaccine. Due on due Goal Zoster vaccine ( ). Due on due Goal Pneumococcal vac cine. Due on due Goal Urine microalbumin. Due on N due Goal DEXA scan. Due on due Goal Document SOGI In formation. Due on due Goal ASCVD 10 year risk. Due on S due Goal Hemoglobin A1C. Due on due Goal Dental exam. Due on 022 due Goal Diabetes Screening. Due on due Goal Zoster vaccine (1st) due Goal GFR. Due on due Goal Foot exam. Due on 3 due Goal Monofilament Exam. Due on due Goal LDL Cholesterol (Direct). Due on due Goal Hemoglobin A1C. Due on due Goal Pneumococcal vac cine. Due on due Goal Urine microalbumin. Due on due Goal Document SOGI In formation. Due on due Goal Zoster vaccine () due Goal Unhealthy drug u se screening. Due on due Goal GFR. Due on due Goal Dental exam. Due on due Goal Diabetes Screening. Due on due Goal Td vaccine. Due on 23 due Goal Dilated eye exam. Due on Mar due Goal Monofilament Exam. Due on due Goal Influenza vaccine. Due on due Goal LDL Cholesterol (Direct). Due on due Goal Foot exam. Due on 3 due Goal DEXA scan. Due on 2 due Goal ASCVD 10 year risk. Due on due Goal Zoster vaccine ( 2nd). Due on due Goal GFR. Due on due Goal DEXA scan. Due on 2 due Goal Monofilament Exam. Due on Ju due Goal Document SOGI In formation. Due on due Goal Urine microalbumin. Due on N due Goal Td vaccine. Due on 23 due Goal LDL Cholesterol (Direct). Due on due Goal Hemoglobin A1C. Due on due Goal Zoster vaccine ( 2nd). Due on due Goal ASCVD 10 year risk. Due on due Goal Dilated eye exam. Due on Mar due Goal Zoster vaccine (1st) due Goal Foot exam. Due on 3 due Goal Unhealthy drug u se screening. Due on due Goal Pneumococcal vac cine. Due on due Goal Diabetes Screening. Due on due Goal Dental exam. Due on due Goal Influenza vaccine. Due on due Goal Influenza vaccine. Due on due Goal Dental exam. Due on due Goal Dilated eye exam. Due on February due Goal Document SOGI In formation. Due on due Goal Foot exam. Due on 3 due Goal Hemoglobin A1C. Due on due Goal Diabetes Screening. Due on due Goal Unhealthy drug u se screening. Due on due Goal Monofilament Exam. Due on Ma due Goal Urine microalbumin. Due on N due Goal LDL Cholesterol (Direct). Due on due Goal DEXA scan. Due on 2 due Goal Zoster vaccine (1st) due Goal Td vaccine. Due on due Goal Pneumococcal vac cine. Due on due Goal ASCVD 10 year risk. Due on M due Goal Zoster vaccine ( 2nd). Due on due Goal GFR. Due on due Goal Td vaccine. Due on due Goal GFR. Due on due Goal Dental exam. Due on 022 due Goal DEXA scan. Due on 2 due Goal Influenza vaccine. Due on No due Goal Pneumococcal vac cine. Due on due Goal Foot exam. Due on 3 due Goal Zoster vaccine (1st) due Goal Dilated eye exam. Due on Jan due Goal Monofilament Exam. Due on Ap due Goal Hemoglobin A1C. Due on due Goal Zoster vaccine ( 2nd). Due on due Goal Document SOGI In formation. Due on due Goal Diabetes Screening. Due on F due Goal LDL Cholesterol (Direct). Due on due Goal Unhealthy drug u se screening. Due on due Goal Urine microalbumin. Due on N due Goal ASCVD 10 year risk. Due on A due Goal Zoster vaccine ( ). Due on due Goal LDL Cholesterol (Direct). Due on due Goal Unhealthy drug u se screening. Due on due Goal Urine microalbumin. Due on due Goal Dilated eye exam. Due on Jan due Goal Pneumococcal vac cine. Due on due Goal Foot exam. Due on 3 due Goal Td vaccine. Due on 23 due Goal Hemoglobin A1C. Due on due Goal Monofilament Exam. Due on Ap due Goal Document SOGI In formation. Due on due Goal GFR. Due on due Goal Zoster vaccine (1st) due Goal Influenza vaccine. Due on No due Goal DEXA scan. Due on 2 due Goal ASCVD 10 year risk. Due on A due Goal Dental exam. Due on due Goal Diabetes Screening. Due on due Goal Unhealthy drug u se screening. Due on due Goal DEXA scan. Due on 2 due Goal Dilated eye exam. Due on Nov due Goal GFR. Due on due Goal Zoster vaccine ( ). Due on due Goal Influenza vaccine. Due on due Goal Urine microalbumin. Due on N due Goal Pneumococcal vac cine. Due on due Goal Zoster vaccine (1st) due Goal Foot exam. Due on due Goal Document SOGI In formation. Due on due Goal Hemoglobin A1C. Due on due Goal Monofilament Exam. Due on due Goal LDL Cholesterol (Direct). Due on due Goal Diabetes Screening. Due on due Goal Dental exam. Due on due Goal Td vaccine. Due on due Goal ASCVD 10 year risk. Due on due Goal Unhealthy drug u se screening. Due on due Goal Zoster vaccine (1st) due Goal Zoster vaccine ( 2nd). Due on due Goal ASCVD 10 year risk. Due on due Goal Influenza vaccine. Due on due Goal Td vaccine. Due on due Goal Document SOGI In formation. Due on due Goal GFR. Due on due Goal Hemoglobin A1C. Due on due Goal Foot exam. Due on due Goal Dental exam. Due on due Goal LDL Cholesterol (Direct). Due on due Goal Dilated eye exam. Due on Nov due Goal Monofilament Exam. Due on due Goal DEXA scan. Due on due Goal Urine microalbumin. Due on due Goal Diabetes Screening. Due on due Goal Zoster vaccine. Due on due Goal LDL Cholesterol (Direct). Due on due Goal Dilated eye exam. Due on Oct due Goal Monofilament Exam. Due on due Goal Diabetes Screening. Due on due Goal Hemoglobin A1C. Due on due Goal Foot exam. Due on due Goal Pneumococcal vac cine. Due on due Goal Document SOGI In formation. Due on due Goal Influenza vaccine. Due on due Goal DEXA scan. Due on due Goal Td vaccine. Due on due Goal Dental exam. Due on due Goal Urine microalbumin. Due on due Goal GFR. Due on due Goal Dilated eye exam. Due on Sep due Goal Hemoglobin A1C. Due on due Goal DEXA scan. Due on due Goal Urine microalbumin. Due on due Goal Dental exam. Due on due Goal Influenza vaccine. Due on due Goal LDL Cholesterol (Direct). Due on due Goal Monofilament Exam. Due on due Goal GFR. Due on due Goal Foot exam. Due on due Goal Document SOGI In formation. Due on due Goal Td vaccine. Due on due Goal Zoster vaccine. Due on due Goal Diabetes Screening. Due on due Goal Dental exam. Due on due Goal Zoster vaccine. Due on due Goal Document SOGI In formation. Due on due Goal Diabetes Screening. Due on due Goal Dilated eye exam. Due on Aug due Goal Urine microalbumin. Due on due Goal DEXA scan. Due on due Goal LDL Cholesterol (Direct). Due on due Goal Influenza vaccine. Due on due Goal Monofilament Exam. Due on due Goal GFR. Due on due Goal Hemoglobin A1C. Due on due Goal Foot exam. Due on due Goal Td vaccine. Due on due Goal Foot exam. Due on due Goal Hemoglobin A1C. Due on due Goal Influenza vaccine. Due on due Goal LDL Cholesterol (Direct). Due on due Goal Document SOGI In formation. Due on due Goal GFR. Due on due Goal Zoster vaccine. Due on due Goal Monofilament Exam. Due on due Goal Dental exam. Due on due Goal DEXA scan. Due on due Goal Diabetes Screening. Due on due Goal Td vaccine. Due on due Goal Dilated eye exam. Due on Aug due Goal GFR. Due on due Goal Foot exam. Due on due Goal LDL Cholesterol (Direct). Due on due Goal Diabetes Screening. Due on due Goal Document SOGI In formation. Due on due Goal Influenza vaccine. Due on due Goal DEXA scan. Due on due Goal Dental exam. Due on due Goal Monofilament Exam. Due on due Goal Hemoglobin A1C. Due on due Goal Urine microalbumin. Due on due Goal Zoster vaccine. Due on due Goal Dilated eye exam. Due on May due Goal Td vaccine. Due on due Goal FOBT. Due on due Goal Lipid panel. Due on due Goal Mammogram. Due on due Goal Lipid panel. Due on due Goal Colonoscopy. Due on due Goal LDL Cholesterol (Direct). Due on due Goal Td vaccine. Due on due Goal Diabetes Screening. Due on due Goal Pneumococcal vac cine. Due on due Goal Dilated eye exam. Due on Mar due Goal Monofilament Exam. Due on due Goal GFR. Due on due Goal Foot exam. Due on due Goal Zoster vaccine. Due on due Goal DEXA scan. Due on due Goal Influenza vaccine. Due on due Goal Hemoglobin A1C. Due on due Goal Dental exam. Due on due Goal Document SOGI In formation. Due on due Goal Zoster vaccine. Due on due Goal Document SOGI In formation. Due on due Goal Influenza vaccine. Due on due Goal GFR. Due on due Goal Hemoglobin A1C. Due on due Goal Td vaccine. Due on due Goal Diabetes Screening. Due on due Goal Foot exam. Due on due Goal Dilated eye exam. Due on Mar due Goal Monofilament Exam. Due on due Goal Lipid panel. Due on due Goal DEXA scan. Due on due Goal Dental exam. Due on due Goal Pneumococcal vac cine. Due on due Goal LDL Cholesterol (Direct). Due on due Goal Document SOGI In formation. Due on due Goal Td vaccine. Due on due Goal LDL Cholesterol (Direct). Due on due Goal Pneumococcal vac cine. Due on due Goal Monofilament Exam. Due on due Goal Influenza vaccine. Due on due Goal Hemoglobin A1C. Due on due Goal Dental exam. Due on due Goal GFR. Due on due Goal Zoster vaccine. Due on due Goal Dilated eye exam. Due on Mar due Goal Foot exam. Due on due Goal DEXA scan. Due on due Goal Diabetes Screening. Due on due Goal Dietary manageme nt education, guidance, and counseling completed Goal DEXA scan. Due on due Goal Dental exam. Due on due Goal Influenza vaccine. Due on due Goal Dilated eye exam. Due on February due Goal Document SOGI In formation. Due on due Goal Monofilament Exam. Due on due Goal GFR. Due on due Goal Lipid panel. Due on due Goal Diabetes Screening. Due on due Goal Td vaccine. Due on due Goal Hemoglobin A1C. Due on due Goal Zoster vaccine. Due on due Goal Foot exam. Due on due Goal Pneumococcal vac cine. Due on due Goal LDL Cholesterol (Direct). Due on due Goal LDL Cholesterol (Direct). Due on due Goal Foot exam. Due on due Goal Influenza vaccine. Due on due Goal GFR. Due on due Goal Pneumococcal vac cine. Due on due Goal Td vaccine. Due on due Goal Dental exam. Due on due Goal Monofilament Exam. Due on due Goal Document SOGI In formation. Due on due Goal Hemoglobin A1C. Due on due Goal Lipid panel. Due on due Goal Zoster vaccine. Due on due Goal DEXA scan. Due on due Goal Dilated eye exam. Due on Dec due Goal Diabetes Screening. Due on due Goal FOBT. Due on due Goal GFR. Due on due Goal Lipid panel. Due on due Goal Document SOGI In formation. Due on due Goal Pneumococcal vac cine. Due on due Goal Influenza vaccine. Due on due Goal Monofilament Exam. Due on due Goal Mammogram. Due on due Goal Zoster vaccine. Due on due Goal Diabetes Screening. Due on due Goal Dental exam. Due on due Goal DEXA scan. Due on due Goal Td vaccine. Due on due Goal LDL Cholesterol (Direct). Due on due Goal Dilated eye exam. Due on Dec due Goal Hemoglobin A1C. Due on due Goal Colonoscopy. Due on due Goal Foot exam. Due on 1 due Goal Colonoscopy. Due on 030 due Goal FOBT. Due on due Goal Lipid panel. Due on 025 due Goal Mammogram. Due on due Goal Influenza vaccine. Due on due Goal Dental exam. Due on due Goal Pneumococcal vac cine. Due on due Goal Dilated eye exam. Due on Jun due Goal DEXA scan. Due on 0 due Goal LDL Cholesterol (Direct). Due on due Goal Foot exam. Due on 0 due Goal Zoster vaccine. Due on due Goal Td vaccine. Due on 23 due Goal Diabetes Screening. Due on due Goal Hemoglobin A1C. Due on due Goal Document SOGI In formation. Due on due Goal GFR. Due on due Goal Monofilament Exam. Due on due Goal GFR. Due on due Goal Influenza vaccine. Due on due Goal Document SOGI In formation. Due on due Goal Td vaccine. Due on 23 due Goal Pneumococcal vac cine. Due on due Goal Monofilament Exam. Due on due Goal Zoster vaccine. Due on due Goal Dental exam. Due on due Goal Foot exam. Due on 0 due Goal DEXA scan. Due on 0 due Goal Hemoglobin A1C. Due on due Goal LDL Cholesterol (Direct). Due on due Goal Diabetes Screening. Due on due Goal Dilated eye exam. Due on May due Goal Dilated eye exam. Due on Apr due Goal Td vaccine. Due on due Goal Pneumococcal vac cine. Due on due Goal Zoster vaccine. Due on due Goal Foot exam. Due on 0 due Goal DEXA scan. Due on 0 due Goal Monofilament Exam. Due on due Goal Dental exam. Due on due Goal GFR. Due on due Goal Diabetes Screening. Due on due Goal Influenza vaccine. Due on due Goal Hemoglobin A1C. Due on due Goal Document SOGI In formation. Due on due Goal LDL Cholesterol (Direct). Due on due Goal Lipid panel. Due on due Goal Colonoscopy. Due on due Goal Mammogram. Due on due Goal Diabetes Screening. Due on due Goal Document SOGI In formation. Due on due Goal Dilated eye exam. Due on Nov due Goal DEXA scan. Due on 0 due Goal Foot exam. Due on 0 due Goal Monofilament Exam. Due on due Goal Dental exam. Due on due Goal Pneumococcal vac cine. Due on due Goal Zoster vaccine. Due on due Goal Td vaccine. Due on due Goal Influenza vaccine. Due on due Goal Diabetes Screening. Due on due Goal DEXA scan. Due on 9 due Goal Pneumococcal vac cine. Due on due Goal Document SOGI In formation. Due on due Goal Monofilament Exam. Due on due Goal Dental exam. Due on due Goal Zoster vaccine. Due on due Goal Td vaccine. Due on due Goal Dilated eye exam. Due on Aug due Goal Foot exam. Due on 9 due Goal Influenza vaccine. Due on due Goal Pneumococcal vac cine. Due on due Goal Td vaccine. Due on 23 due Goal Dilated eye exam. Due on May due Goal DEXA scan. Due on 9 due Goal Influenza vaccine. Due on due Goal Foot exam. Due on 9 due Goal Dental exam. Due on due Goal Document SOGI In formation. Due on due Goal Zoster vaccine. Due on due Goal Diabetes Screening. Due on due Goal Monofilament Exam. Due on due Goal Monofilament Exam. Due on due Goal Document SOGI In formation. Due on due Goal GFR. Due on due Goal Zoster vaccine. Due on due Goal Foot exam. Due on due Goal Td vaccine. Due on due Goal Dental exam. Due on due Goal DEXA scan. Due on 9 due Goal Influenza vaccine. Due on due Goal Pneumococcal vac cine. Due on due Goal Diabetes Screening. Due on due Goal Dilated eye exam. Due on Mar due Goal Dental exam. Due on due Goal Colonoscopy. Due on due Goal GFR. Due on due Goal Foot exam. Due on 9 due Goal Monofilament Exam. Due on due Goal Dilated eye exam. Due on February due Goal LDL Cholesterol (Direct). Due on due Goal Mammogram. Due on 0 due Goal Lipid panel. Due on due Goal Document SOGI In formation. Due on due Goal DEXA scan. Due on due Goal Zoster vaccine. Due on due Goal Influenza vaccine. Due on due Goal Td vaccine. Due on due Goal Pneumococcal vaccine due Goal Diabetes Screening. Due on due Goal APE. Due on due Goal APE. Due on due Goal Dilated eye exam. Due on Oct due Goal Foot exam. Due on 9 due Goal DEXA scan. Due on due Goal Diabetes Screening. Due on due Goal Monofilament Exam. Due on due Goal ECG. Due on due Goal Dental exam. Due on 019 due Goal Td vaccine. Due on due Goal Urinalysis. Due on 19 due Goal LDL Cholesterol (Direct). Due on due Goal Colonoscopy. Due on 020 due Goal Dental exam. Due on 018 due Goal Foot exam. Due on 8 due Goal Urine microalbumin. Due on due Goal Diabetes Screening. Due on due Goal Dilated eye exam. Due on Apr due Goal GFR. Due on due Goal Lipid panel. Due on 017 due Goal Zoster vaccine. Due on due Goal Monofilament Exam. Due on due Goal Td vaccine. Due on due Goal APE. Due on due Goal ECG. Due on due Goal Hemoglobin A1C. Due on due Goal DEXA scan. Due on due Goal Urinalysis. Due on 18 due Goal Diabetes Screening. Due on due Goal Urine microalbumin. Due on due Goal Urinalysis. Due on 18 due Goal Hemoglobin A1C. Due on due Goal Td vaccine. Due on due Goal Foot exam. Due on due Goal ECG. Due on due Goal DEXA scan. Due on due Goal APE. Due on due Goal Zoster vaccine. Due on due Goal Lipid panel. Due on 016 due Goal Monofilament Exam. Due on due Goal LDL Cholesterol (Direct). Due on due Goal Dilated eye exam. Due on February due Goal GFR. Due on due Goal Dental exam. Due on 018 due Goal Colonoscopy. Due on 020 due Goal Foot exam. Due on 8 due Goal Monofilament Exam. Due on due Goal Hemoglobin A1C. Due on due Goal APE. Due on due Goal Dilated eye exam. Due on Jan due Goal Lipid panel. Due on 017 due Goal APE. Due on due Goal Dilated eye exam. Due on Jul due Goal Monofilament Exam. Due on due Goal Foot exam. Due on due Goal Hemoglobin A1C. Due on due Goal Dilated eye exam. Due on Jun due Goal APE. Due on due Goal Foot exam. Due on due Goal Hemoglobin A1C. Due on due Goal Monofilament Exam. Due on due Goal APE. Due on due Goal Dilated eye exam. Due on Mar due Goal Foot exam. Due on due Goal Hemoglobin A1C. Due on due Goal Monofilament Exam. Due on due Goal Monofilament Exam. Due on due Goal Foot exam. Due on due Goal Hemoglobin A1C. Due on due Goal APE. Due on due Goal Dilated eye exam. Due on February due Goal APE. Due on due Goal Monofilament Exam. Due on due Goal Hemoglobin A1C. Due on due Goal Dilated eye exam. Due on February due Goal Foot exam. Due on due Goal APE. Due on due Goal Foot exam. Due on due Goal Dilated eye exam. Due on Jan due Goal Monofilament Exam. Due on due Goal Hemoglobin A1C. Due on due Goal Dilated eye exam. Due on Jan due Goal Monofilament Exam. Due on due Goal APE. Due on due Goal Pneumococcal vaccine due Goal Hemoglobin A1C. Due on due Goal Foot exam. Due on due Goal Monofilament Exam. Due on due Goal Hemoglobin A1C. Due on due Goal Pneumococcal vac cine. Due on due Goal APE. Due on due Goal Dilated eye exam. Due on Oct due Goal Foot exam. Due on due Referral Ordered: Endocrinology (related to Type 2 diabetes mellitus with hyperglycemia, without long-term current use of insulin) ordered Referral Ordered: Referrals: Endocrinology. Follow-up and treat Appointment date/timeframe: Elective-Pt Discretion ordered Referral Ordered: Physical Therapy (related to Chronic left hip pain) ordered Referral Ordered: Physical Therapy (related to Chronic left hip pain) ordered Referral Ordered: Referrals: Cardiology. Evaluate and treat Appointment date/timeframe: 02/24/2022 ordered Referral Ordered: Physical Therapy (related to Neck pain) ordered Referral Ordered: X-RAY EXAM OF CERVICAL SPINE, MIN 4 VIEWS ordered Referral Referred To: Physical Therapy Ordered: Referrals: Physical Therapy. Evaluate and treat ordered Referral Ordered: Referrals: Orthopedics. Evaluate and treat Appointment date/timeframe: 09/20/2016 ordered Referral Ordered: Referrals: Physical Therapy. Evaluate and treat ordered Referral Ordered: MAMMOGRAM SCREENING, BILATERAL ordered Referral Ordered: Referral: Dermatology. Appointment date/timeframe: 04/08/2014 ordered Referral Ordered: referred to CCM. lab, nutr -today (related to Hypertension, Unspecified) ordered Referral Ordered: referred to lab -today (related to Hypertension, Unspecified) ordered Referral Ordered: Referral: Dermatology. Evaluate and treat. Appointment date/timeframe: 03/07/2013 ordered Patient Education Neck Strain or Sprain: Rehab Exercises completed Future Order: Lab Order FIT ([id number]), Sent on: Sent Future Order: Lab Order SURGICAL PATHOLOGY (), Appointment on: , Sent on: Sent Future Order: Lab Order SURGICAL PATHOLOGY ([id number]), Appointment on: , Sent on: Sent Future Order: Lab Order FIT ([id number]), Sent on: Sent Future Order: Lab Order CULTURE, TISSUE (BIOPSY) ([id number]), Appointment on: , Sent on: Sent Future Order: Lab Order THIN PRE P PAP WITH CT/GC AND HIGH RISK HPV ([id number]), Sent on: Sent Future Order: Lab Order ALT ([id number] ), Appointment on: , Sent on: Sent Future Order: Lab Order AST ([id number] ), Appointment on: , Sent on: Sent Future Order: Lab Order GLYCOHEM OGLOBIN A1C ([id number]), Appointment on: , Sent on: Sent Future Order: Lab Order LIPID PA FLORENCE/CFR ([id number]), Appointment on: , Sent on: Sent Future Order: Lab Order POTASSIU M ([id number]), Appointment on: , Sent on: Sent Future Order: Lab Order CREATINI NE BLOOD ([id number]), Appointment on: , Sent on: Sent History Of Present Illness Encounter Date Complaint History Of Prese nt Illness blood pressure medication request Follow Up of hyperglycemia blood pressure (comments) Commen ts: no HTN meds x 3 days as unable to come to [facility] to [facility] med boxes here today with [id number] in [place] -recently moved from [place] - planning to seek PCP closer to [facility] - not eligible for PT-1 medication request (comments) Co mments: on 06-10-23 this PCP wrote: I am concerned that this patient is not capable of managing her own medication boxes - we ( PCP and clin pharm) have discussed this before ( that patient does not understand the refill process for med boxes ) - I would like to get her detention services - patient r/s her 06-10-23 appt with PCP to 06-15-23 - will address then - would you please assist with meds for now thank you Follow Up of hypergl ycemia (comments) Comments: 05-18-23: seen at [facility] with A1C 15% - sent to ER - admitted here in f/u today has bottle of metformin ER 500 mg - taking 1 pill bid - has not taken x 3 days - forgets to takeBS here 130 ~ 3 1/2 hrs pp a small piece of banana requesting Glucerna Dizziness and blurry vision 82 y rs F w/ PMH of HTN, DM and hyperlipidemia presents at [facility] . pt stated that she was at [facility] ED 2 wks ago for hyperglycemia, she called [facility] to schedule ED f/u visit w/PCP but she never got a call back, therefore she decided to walk in to today. She c/o dizziness and blurry vision x 2 wks. pt describes dizziness as occasional and mild. pt reports she is currently on insulin and metformin for DM and losartan, amlodipine and HCTZ for HTN. she gets her DM meds from Oral Therapist at [facility], pt also reports she hasn't taken her DM and HTN meds today and hasn't checked her glucose or BP. pt also reports that she hasn't ate anything today but drank a bottle of ensure. pt reports her eye glasses are old and she hasn't had optometry appt for >3 years, she thinks she is experiencing blurry vision because her glasses are old, need updated glasses. pt denies CARROLL, CP, SOB, palpitation, double vision. She reports having unintentional weight loss. She wants to schedule a f/u appt but in next few days because she has to arrange a ride. vaginal itch vaginal itch (comments) Comments : 82 yo HTN female with type 2 DM with last A1C of 6.9 in December , metformin stopped at that visit into UC with 15 days of vaginal itch She has not noted any abnl d/c On review she has dropped 9lbs in 4 months and when asked pt reports no dietary changes / GI issues She does note she has been really thirsty and drinking a lot of water Updated A1c of 15 and RBS of HI chronic conditions 1) Type 2 vanessa betes mellitus without complication, without long-term current use of insulin (onset 03/24/2021; Controlled. 01-06-23: A1C 6.5 - instructed to stop metformin at that time - BS monitoring by patient not needed - she keeps asking for glucometer supplies) 2) Chronic left hip pain (onset 02/16/2022; Well Controlled. 01-06-23: referred to PT - states went x 3 - hip better) 3) Essential (primary) hypertension (onset 03/17/2012; Well Controlled. 01-06-23: amlodipine 5 mg added to HTN meds02-16-23: CCM BP 124/68has med boxes prepared by clin pharm - patient calls frequently for refills when has refillsstates a friend picked up boxes yesterdaypatient recently moved to [place] with son who bought a house - wishes to c/w this PCP - requesting assistance with transpo to appts) 4) Moderate cervical dysplasia (onset 04/26/2018; Controlled.) F/U HTN Pt. presents in NAD for review of BP log & in office BP check & BP monitor comparison per provider POC. BP goal <150/90Pt. is doing good.Denies denies vision changes, CP, & palp, dizziness , SOB, blurry vision, n/v, nose bleedsPt. currently on amlodipine 5mg ,HCTZ 25 mg & losartan 100mg. Taking everything that is prescribed daily. I take every medicine that I receive dailyPt. usually doesn't SMBP but checked once and doesn't recall numbersOnly uses little bit of salt.do a lot of walking around the house& goes up & down stairs.No S/sx of high/ low BGLPt.'s A1c 6.9 % BGL 210, almost 3 hr ppDiet: Brkfst: soup, yuca lunch : beef / more fish. sometimes chicken w/ rice , beans peasdinner: sometimes doesn't eat dinner, sometimes drinks papaya juice.BP in office - 124/68, 60BGL Had little bit of spaghetti around 11:45 preventive exam Postmenopausal: Age: 47. The patient does not use tobacco. The patient does not drink alcohol. chronic conditions 1) Chronic le ft hip pain (Poorly controlled. takes Tylenol prn, heatsometimes does nothing) 2) Essential (primary) hypertension (onset 03/17/2012; Uncontrolled. receives prepackaged med boxesbrought empty boxtakes meds in AM - last took yesterday AM - 6 1/2 pills ( this is correct )HTN meds: losartan 100, HCTZ 25) 3) Mixed hyperlipidemia (Stable. atorvastatin 40 mg) 4) Vitamin D deficiency, unspecified (onset 10/04/2013; Stable. vit D 2000 iu daily) 5) Type 2 diabetes mellitus without complication, without long-term current use of insulin (onset 03/24/2021; Controlled. takes metformin 250 mg ( 1/2 500 ) lcyemG1O 6.5, BS here 138 ~ 1 hr pp coffee/milk/sugar) 6) Moderate cervical dysplasia (onset 04/26/2018; Stable.) chronic conditions 1) Essential (primary) hypertension (onset 03/17/2012; Poorly controlled. ran out of HN meds 2 days ago stats was given only 30 day supply - blister pack) 2) Type 2 diabetes mellitus without complication, without long-term current use of insulin (onset 03/24/2021; Controlled. checks BS once a weekthe strips do not match the machine has ultra one touch stripsfreestyle lite glucometer: A1C = 5.7) Blood pressure varicose veins concern dry lips (comments) Comments: glen barlow a dry area on lips that has now resolved varicose veins concern (comments ) Comments: left inner thigh varicose veins dry lips chronic conditions *See Chronic Conditions HPI chronic conditions 1) Essential (primary) hypertension (onset 03/17/2012; Controlled. repeat BP 140/56 left med cuff 03-15-22: started blister packstook meds this AMHTN meds: losartan 100 mg, HCTZ [address] Jesus x ~ 10 days - doesn't know departure date has no concerns today) medication management Here today for blister packs. Brings all medications - losartan and metformin last filled at [facility] in december for 90 day supply. All other medications filled for 90 day supply at [facility] on 02/16. Medications brought with her today are consistent with active med list: vit.D3, mvi, atorvastatin, hctz, losartan and metformin. She reports taking all medications at the same time every morning. Confirms taking 2 vitamin D capsules (as prescribed) - all other medications are one tablet daily. Did not see cardio - missed appointment because of transportation and is requesting assistance rescheduling this. Also asking for ensure - reports she used to get it and she is feeling weak and would like it again. fall the down the stairs chronic conditions 1) Chronic le ft hip pain (Poorly controlled. requesting xray for pain left hip and groin 2013: left hip film showed degenerative changes) 2) Essential (primary) hypertension (onset 02/16/2022; Uncontrolled. brings 3 bottles of meds - losartan 100 mg, acetaminophen and metformin - states [facility] did not give her the 100 mg HTN med - her missing HTN med is HCTZ 25 mg) 3) Mixed hyperlipidemia (Uncontrolled. no atorvastatin 40 mg with meds) 4) Type 2 diabetes mellitus without complication, without long-term current use of insulin (onset 03/24/2021; Well Controlled. A1C 5.7, ( : POC 6.1, vg 6.4 )taking 250 mg ( 1/2 500 mg metformin daily )I don't eat anything, x 3 months they have not given me Ensurelabs UTD 4 lb wt loss noted since , unchanged from ) leg pain dizziness dizziness (comments) Comments: r esolved chronic conditions 1) Type 2 vanessa betes mellitus without complication, without long-term current use of insulin (onset 03/24/2021; Controlled. states FSBS 6 hrs pp on 01-30-22 = 91 takes metformin 250 mg ( 1/2 500 ) dailygranddtr checking her BS every Tuesday12-07-21: A1C = 6.4 requesting Ensure - they haven't sent it to me for past 2 months also states received a card requesting that she change her PCP - she wants to keep current PCP) leg pain (comments) Comments: st ates she had very bad arthritis pain - was unable to get out of bed x 6 days - dtr came and gave massage - told her she had knot in back of thigh - massage helped - as of yesterday was able to get up and aroundPMH: Oa neck and knee11-20-21: podiatry - NO LOPS chronic conditions *See Chronic Conditions HPI chronic conditions 1) Type 2 vanessa betes mellitus without complication, without long-term current use of insulin (onset 03/24/2021; Stable. 09-04-22: A1C 6.0taking metformin 250 mg daily ( 1/2 500 mg ) - confirmedstates grand daughter checking FSBS once a week in [place] ~ 5-6 hrs pp - FSBS recall 152, 142has no one to check hr fasting FSBS10-13-21: tele CCM -patient does not know how to use glucometer or blood pressure cuff11-20-21: podiatry - no LOPS ( monofilament normal ): labs UTDcc: med refills -) 2) Essential (primary) hypertension (onset 03/17/2012; Controlled. losartan 100, HCTZ 25 mg) diabetic foot care F/U DM teaching AND HTN Telephon e call visit conducted with the help of ISMAEL ROGER #[id number] Serjio, Pt consented the call. Pt reported that she is feeling good and denied any concern at this time.She reported that she is now taking all her meds as ordered after her last visit. Still using the meds that she filled from [facility] pharmacy. She does have BP monitor at home but never checked her BP.She is occasionally checking BGL since she is still straggling to do it on her own and her family are assisting her at night time when they get the chance. She has not kept reading log and stated last night was at 135 at bed time. she is trying to minimize carb intake and has eliminated past and bread. she eats small portion of rice, bananas, green mirza and peace. Pt does not like vegetables or salad. Drinks insure because she does not eat much.Pt may benefit from Glucerna CCM will advocate for Glucerna instead of insure to prevent DM progression. CCM still not able to find out who the CCM for this pt is, this CCM will try again to reach out to [facility] director of casework department.She denied hyper/hypo glycemic sxs, CP, CARROLL, vision disturbances and SOB.Pt declined to check BP today and stated that she does not know how to use it on her own and no one is at home with her at this time. F/U DM and HTN/ Gluc ometer teaching Pt presents today in [facility] for F/U DM, HTN, BP Check and glucometer use teaching as planned previously per PCP's POC.In last visit, pt did not being her glucometer and was out of all her meds s/t meds not being dispensed by [facility] pharmacy and pharmacy has stated that pt now has a different insurance that does not cover her Rxes.All prescriptions were sent to [facility] pharmacy.Today she brought all her meds and her glucometer.she confirms taking Losartan 100 mg qd, HCTZ 25 MG QD and metformin 1/2 tab of 500 mg qd. pt was provided with pill cutter but since she did not know how to use it, she has been trying to cut it using knife and stated that was difficult to do. [facility] will provide an education and training today.She denied dizziness, CARROLL, CP, palpitation and SOB. BGL in office at 109,BP at 113/69 HR 58 F/U DM and glucometer teaching P t presents today in [facility] for F/U DM, and glucometer use teaching planned previously.pt did not bring her glucometer and stated that the pharmacy did not dispensed. Pt also reported that she was not given any of her other meds and has not taken her BP meds as well as Metformin for the past 4 days.Pt reported feeling a bit dizzy after dropping off her granddaughter 4 days agoShe denied any sxs of CP, CARROLL, dizziness, SOB, Arm pain, shoulder pain, jaw pain and vision disturbances at this time.Pt c/o arthritis/joint kpain on her fingers. She takes tylenole with good effect. [facility] contacted [facility] and was informed that they could not dispense any of pt's med since it showing them that pt has alternative insurance. [facility] will assist addressing insurance issue by coordinating with [employer] [facility] and [facility] registered nurse hh case manager.BP in office elevated at 199/72 HR 52 R brachial and 191/72 HR 49 L. brachial. CCM will consult with PCP and will request all meds to be sent to [facility] pharmacy for time being. chronic conditions 1) Essential (primary) hypertension (onset 03/17/2012; Fair Control. states no missed doses medications ( losartan 100 HCTZ 25 )) 2) Type 2 diabetes mellitus without complications (onset 03/24/2021; Improved. A1C = 6.0 ( 03-24-21 = 6.7 ), FSBS : started metformin 250 mg ( 1/2 500 mg ) - confirmedstates nurse who goes to house told her she has decreased circulation in her feet what causes that?requesting glucometer supplies pap and mammo UTD) chronic conditions 1) Type 2 vanessa betes mellitus without complications (onset 03/24/2021; New onset. 03-24-21: A1C = 6.7was encouraged to stop juice, smaller portions rice, pasta, white potato, cereal, yuca, bread, more veg, saladstates she stopped juice, yuca, pasta - eating rice dentures do not allow her to eat more veg and saladshe drinks one ensure dailyFSBS here today 2 hrs pp = 200) 2) Cervicalgia (onset 03/24/2021.05-11-21: seen by [facility] for chronic right neck and shoulder pain - referred to PT) 3) Essential (primary) hypertension (onset 03/17/2012; Fair Control. brought losartan 100 and HCTZ 25 mg bottles - states no missed doses) 4) Mixed hyperlipidemia (Uncontrolled. states [facility] had not called here that cholesterol med ready ( atorvastatin 40 mg sent 03-24-21 )) chronic conditions *See Chronic Conditions HPI pap smear (comments) : pap NEG/HR HPV NEG/LR HPV POS - to repeat 2020 dizziness Onset was 5 days ago. The problem is acute. The patient describes it as (an) spinning. Pertinent negatives include chest pain. dizziness (comments) 05-21-21: carroll d 2 episodes head spinning - no headache, no chest pain pap smear covid vax Patient presents in NAD for COVID vaccine. Patient meets criteria of cohort currently sanctioned by [facility]. Contraindications and risk factors assessed. Patient's questions answered. Follow Up of Breast tenderness L ocation is left breast: upper outer quadrant(s). The problem is resolved. Follow Up of neck pain The probl em has improved. Location of pain is left posterior neck. chronic conditions 1) Mixed hype rlipidemia (states they did't give her cholesterol pill) 2) Essential (primary) hypertension (onset 03/17/2012; Fair Control. stats both BP pills in AM ( losartan 100, HCTZ 25 )repeat BP right 149/74in ER 03-14-21 for left neck and breast pain = 186/69labs: nl BMP, troponin x 1, CBCD) 3) Impaired fasting glucose (Poorly controlled. A1C today = 6.7 ( new T2DM ) - : A1C = 6.0 with normal CBC) Follow Up of neck pain (comments ) lots -26-28: tele EMK chronic posterior neck painRF to PT - did not goxray - did not goreferred to ortho at pt req - no appt yetRx: APAP, topical diclofenac, ice/heat Follow Up of Breast tenderness (comments) 03-14-21: ER - had a stabbing pain UOQ breast - it's gonethinks it was gasEKG NSR, nonspecific T wave abnormality unchanged from [id number] chest w/dye for RUL mass on CXR = area of concern on CXR corresponds to tortuous mediastinal vessels - NO MASS chronic conditions *See Chronic Conditions HPI med reconciliation Pt presents t o clinic today for med reconciliation. Also has Hx of HTN so will do BP check in clinic today. Pt reports she is taking the following medications as currently written: atorvastatin, HCTZ, losartan, vitamin D3, acetaminophen, clobetasol cream. Pt also notes she is taking loratadine 10mg daily PRN for allergies from prior Rx from [facility]. Pt states she was unable to chicken picker multivitamin last time she was at pharmacy and requested this med. Pt would also like to re-start calcium tablets. Pt also requests COVID vaccine today. Pt is in NAD. Patient meets criteria of cohort currently sanctioned by [facility]. Contraindications and risk factors assessed. Patient's questions answered.Telephonic [employer] PI# [id number] and [id number] used for entire visit. neck pain. 80yo F contacted for telehealth visitLang: SpanishHPI: Pt reports that she has been having significant pain in her neck for several monthsthis is the same neck pain that she was evaluated for back in 05/2020 when she went to EDshe will have occasional associated mild headaches that are intermittentpain is located on both sides of back of neck and up to her headpain is mostly at night - needs to wake up and take medication to help her go back to sleepshe does not have any nights without this painduring the day she is almost pain free; starts to get worse during the late afternoonshe has bene managing the pain with APAP - she finished thispain is worse with movement in any planeshe notices that if she sits for awhile, the pain will get betterdenies pain in shoulders/arms, decreased ROM, paresthesias/weakness in arms itching eyes 80 yo F cc itching eyes OU constant; she said it started 1 month ago; (+) burning and watering; 10/10 itchy; HTN dx 2010 controlled with meds; Prediabetic Dx 2010- monitored by PCP'; (-) Double vision, flashes, floaters (+) HAs. Follow Up of neck pain (comments ) relief with OTC acetaminophen she thinks it's arthritis pap smear (comments) : col po [facility] = dysplasiahere for repeat pap preventive exam Postmenopausal: Age: 47. The patient does not use tobacco. Tobacco cessation has been discussed. She has not been exposed to passive smoke. She does not drink alcohol. pap smear Follow Up of neck pain Location of pain is bilateral posterior neck. Relieving factors include OTC medications. chronic conditions 1) Essential (primary) hypertension (onset 03/17/2012; Well Controlled.) Follow Up of neck pain The probl em has improved. Location of pain is bilateral posterior neck. Follow Up of headache Onset: 1 M onth. Pain scale: 5/10. The symptoms are intermittent. Locations affected include left frontal. Headache timing includes no pattern. Denies aggravating factors. Symptoms are relieved by analgesics and OTC meds. Pertinent negatives include blurred vision, dizziness, nausea, phonophobia, photophobia, neck stiffness or vomiting. Follow Up of headache (comments) 05-15-20: presented to ER - Dx: tension H/A - given Fioricetpatient states she awoke at 6 AM with H/A - 02/16 - took 2 acetaminophen - resolvedno H/A now05-21-20: had colonoscopy for polyp surveillance - appetite decreased since then neck pain (comments) neck pain w orse at nightable to sleep after applying hot wateracetaminophen does not helpibuprofen helps: sen for left shoulder and neck pain - did not go for xrays - suspected OAreturned from 4 mos in on 04-18-20was well while thererequesting Ensure and B/P cuff be sent to her home ( [facility] ) tooth pain tooth pain (comments) requests d ental appt neck pain Location of pain is bilateral posterior neck. chronic conditions *See Chronic Conditions HPI chronic conditions 1) Mixed hype rlipidemia (Stable. : atorvastatin 20 --> 40 mg) 2) Essential (primary) hypertension (onset 03/17/2012; Stable. confirmed taking HTN meds ( HCTZ 25, losartan 100 )) shoulder pain (comments) taking acetaminophen at with reliefalso has neck pain denies tingling, CP, SOB shoulder pain Onset: 2 months ago. Severity level is 10. It occurs intermittently and is stable. Location: left shoulder. The pain radiates to the left arm. The pain is sharp. Context: there is no injury. The pain is aggravated by movement. The pain is relieved by OTC medicines (acetaminophen). Associated symptoms include difficulty initiating sleep, nocturnal awakening and nocturnal pain. Pertinent negatives include tingling in the arms and weakness. chronic conditions 1) Mixed hype rlipidemia (Fair Control. : LDL 122 no atorvastatin 20 mg with meds today) 2) Impaired fasting glucose (Stable. : vg 6.1 on no DM meds) 3) Essential (primary) hypertension (onset 03/17/2012; Well Controlled. HCTZ 25, losartan 100 ( brought )at [facility] nurse home visit 08-20-19 B/P 136/64I received task that [facility] POLYSOMNOGRAPHIC TECHNICIAN noted decreased blood flow both feetpt denies tingling, burning, numbness of BLE : labs UTD and nl) 4) Vitamin D deficiency, unspecified (onset 10/04/2013; Uncontrolled. states insurance does not cover vit D) 5) Moderate cervical dysplasia (onset 04/26/2018; Stable. 06-13-19: [place] dysplasia[place]: repeat co-testing 12 mos ( Jun 2020 )) foot pain Onset: 3 months ago. It occurs intermittently. Location: left foot (top of foot). Context: there is no injury. The pain is aggravated by walking. headache (comments) no headaches recently foot pain (comments) no pain rec ently headache Onset: 1 Month. Pain scale: 8/10. The problem has resolved. Locations affected include bilateral temporal and left back of head. Headache timing includes nocturnal. Symptoms are relieved by prescription meds. Relieving factors additional comments: acetaminophen. chronic conditions 1) Mixed hype rlipidemia (Stable. atorvastatin 20 mg) 2) Essential (primary) hypertension (onset 03/17/2012; Well Controlled. HCTZ 25, losartan 100 : EE UTD) 3) Moderate cervical dysplasia (onset 04/26/2018; Stable. : LEEP, : [facility] f/u - req 6 month pap/HR HPV -[facility] cancelled 03-21-19 f/u --> 05-07-19pt would like to f/u for her pap at [facility] as she has a difficult time finding where she needs to go at [facility] and with transportation) itchy eyes 78 y/o female reports with CC of itchy eyes OU; it is equal in both eyes and started 1 month prior. She was states she was previously taken unknown drops that seemed to help that she received at this clinic. Feels that it is slightly worse in the evening and noticeably worse in doors. Denies flashes floaters pain stinging burning or watering of eyes. chronic conditions 1) Mixed hype rlipidemia (Poorly controlled. doesn't recall the last time she took cholesterol med ( atorvastatin 20 mg ) - picks up her meds at [facility] - they haven't called me ) 2) Essential (primary) hypertension (onset 03/17/2012; Fair Control. repeat 140/74 on current meds - no missed doses ( ? )) 3) Vitamin D deficiency, unspecified (onset 10/04/2013; Stable. vit D 2000 iu daily) 4) Pain in unspecified shoulder (onset 02/14/2017; Fair Control. no recent acetaminophen) chronic conditions 1) Mixed hype rlipidemia (Uncontrolled. statesseveral months that pharm has not efiled her chol med ( atorvastatin 20 )) 2) Essential (primary) hypertension (onset 03/17/2012; Controlled. 140/66 confirmed losartan 100, HCTZ 25 mg) skin lesion Area(s) of karo rn include the left buttocks. Associated symptoms include erythema. Additional information: states she has a red line across left buttcoks that comes and goes, relieved with hot water and vicks vaporub - no rash today.The Problem is resolved. Follow Up of Pap/ECC 77 yo with hx of prior +HRHPV cotests c/nl Pap cytology 06/24 and 08/25 followed by colpo 09/24 showing only cervicitis (neg bx at 5:00 and neg ECC) now here for rpt Pap and ECC. Was supposed to see me 09/25 (1 yr post colpo in 2015) for rpt Pap and ECC but DNKA. Cares for grandlaurieter every day and that limits her availability. With partner x 37 yrs, no difficulties with intercourse, no vag complaints. No menses since 1982, never bleeds at all. 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 Location: left shoulder. The pain is relieved by mobility and OTC medicines (ibuprofen). Pertinent negatives include numbness, tingling in the arms and weakness. Follow Up of Abnormal pap HCM Follow Up of Abnorma l pap (comments) was due for repeat pap/ECC with Dr. Clarke in setting of pos HR HPV x 2missed APE appt with me 07-05-17 and this was lost to f/u [facility] (comments) as above missed APEnl mammo EE [id number] 2009 - to repeat 5-10 yrs Itching 76yo F is here for an anual eye exam. Patient has no blurry vision cc at D or N. Reports occasional itching OS. Pt states that she uses cream that was given to her before to make it better. Pt reports some bright lights OS when she woke up 3 days ago. Pt denies any discharge, floaters. Pt's last appt with PCP was in January 2017. abdominal pain (comments) 3 epis odes in past month of acid reflux lasting 15 minutes on empty stomach abdominal pain Onset: 1 Month. Pain scale: 10/10. The problem has not changed. The symptoms are intermittent. The location is epigastric. The quality of the pain is stabbing. These symptoms do not occur after meals. Aggravating factors include food. Symptoms are not aggravated by constipation. Symptoms are relieved by water with salt/lemon. Associated symptoms include constipation. Pertinent negatives include blood in stool, nausea, vomiting and weight loss. abdominal pain (comments) small hard stools dailybloating after eating even a small amt: colonoscopy- diverticulosis sigmoid colon - otherwise nl abdominal pain Onset: 8 Days. T he problem has not changed. The symptoms are intermittent. The location is diffuse. The quality of the pain is sharp. These symptoms occur after meals. Aggravating factors include food. Symptoms are not relieved by peptobismol. Associated symptoms include bloating and constipation. Pertinent negatives include blood in stool, diarrhea, heartburn, hematuria, nausea, vaginal bleeding, vaginal discharge, vomiting and weight loss. oral lesion Onset was 2 week s ago. The problem is improving. Location is floor of mouth. The patient describes it as nontender. Pertinent negatives include erythema of oral mucosa, fever and painful lesion. Additional information: lifetime nonsmoker, no ETOH. oral lesion (comments) lump was larger, now much smaller chronic conditions f/u corneal ulcer Pt here for f/ u corneal ulcer OS; first noted 01/25/17. Pt used ofloxacin x 1 week, then last week switched to maxitrol. Pt reports using maxitrol 1 gtt QID OS and bacitracin sebastien QHS OS. Pt feels much better, eye no longer bothering her. f/u for corneal ulcer redness 76 yr old Hispan ic female complains of redness, FBS, tearing OU (OS>OD) X days. Puts her eyes in water and opens here eyes in water. provides some relief. Heat from the stove seems to irritate her more. Pt denies: flashes, floaters, CARROLL, diplopia, discharge. Complains of itchiness. cold symptoms Onset: 6 days ag o. There is no cough present. The problem has not changed. Context: sick family member. There are no relieving factors. Associated symptoms include nasal congestion. Pertinent negatives include cough, fever, rhinorrhea, weight loss and wheezing. The patient does not have a history of asthma. chronic conditions 1) Impaired f asting glucose (Well Controlled. : vg 5.8 ( = 6.3 ),no meds) 2) Pruritus vulvae (Stable. requests RF clobetasollast RF ) 3) Mixed hyperlipidemia (Stable. 08-16-16: start atorvastatin 20 -ASCVD risk 21.5) 4) Essential (primary) hypertension (onset 03/17/2012; Well Controlled. lostartan 100, HCTZ 25) Pertinent negatives include weight loss. cold symptoms (comments) poor ap petite, nasal congestion +HRHPV x 2 76 yo (SVDs x 3, last 32 yrs ago) menopausal since age 47 no PMB here for eval of 2 nl Paps c/+HRHPV for last 2 yrs (2014, 2015). Pap in 2014 apparently done as pt's last Pap had been in 2007 and was cytology only with no HRHPV cotest. Has been c/same partner x 36 yrs mostly via [facility] (her going to q 2 yrs for visits) as he has lived in until this past week now has moved her for good per pt. c/o intermittent itching externally in vaginal area none currently. No vag d/c or dryness. PMHx of preDM and Htn and high chol and ?shoulder arthritis--takes meds for most of these condns but is saad bothered by shoulder pain today, was supposed to see an orthopedist as per last PCP note but pt states she has not gotten appt. Follow Up of shoulder pain Onset : 8 months ago. It occurs intermittently. Location: bilateral shoulder. Context: there is no injury. The pain is aggravated by movement and night pain. The pain is relieved by no current meds. Additional information: went to PT in [place] w/o reliefasking for letter for DTA that unable to work. chronic conditions 1) Essential (primary) hypertension (Well Controlled. losaratn 100, HCTZ 25 16: EE) 2) Mixed hyperlipidemia (Stable. self d/c atorvastatin 20 5 mos ago) 3) Age-related osteoporosis without current pathological fracture (Stable. taking vit D and ca++) routine exam The 75 year old female presents for evaluation of routine exam The patient presents for annual comprehensive eye examination. No itching, burning, tearing in the eyes. Patient has no history of ocular injury or surgery. There is no family history of eye disease or blindness. Longstanding PVD ou. Glasses were working well, but are lost. No present floaters or flashes. Allergies (comments) states gage spears OTC med name unknown that helped has run [employer] [place] [facility] form dated 04-07-16 - Dx: conjunctivitis, URI shoulder pain (comments) returne d from [address] on [id number] [place] PT referral - difficulty combing hair and bathing with overhead movementsno hx shoulder problems chronic conditions 1) Essential (primary) hypertension (onset 03/17/2012; Fair Control. losartan 100, pharm has not given her HCTZ 25 ( RF was due February 2016 )labs UTD lost eyeglasses during travel) 2) Pruritus vulvae (Recurrent. requesting refill on clobetasol cream) shoulder pain Onset: 4 months ago. Location: right shoulder. Allergies The patient is a lso experiencing cough. cold symptoms Onset: 1 month a go. There is no cough present. The problem has improved. Context: sick family member. There are no aggravating factors. Relieving factors include tea with honey. Associated symptoms include nasal congestion. Pertinent negatives include cough, fever, post-nasal drainage, rhinorrhea, sore throat and wheezing. The patient does not have a history of allergies or asthma. Hypertension (follow up) (comments) losartan 100, HCTZ 25 last seen 9-8-15 - to f/u 6 mos Follow Up of Musculo skeletal pain (comments) 08-23-15: seen in [facility] with B/L arm pain - to stop ibuprofen and rx APAP and capsacin - taking prn with relief Hypertension (follow up) decreased appetite The symptoms began 3 months ago. 2# wt loss noted since 06-17-15 Follow Up of Musculoskeletal yoli n Musculoskeletal Pain Onset: 2 mo nths ago. Location: bilateral shoulder. The pain radiates to the arms bilaterally. The pain is sharp. Context: there is no injury. Associated symptoms include decreased mobility and joint tenderness. Pertinent negatives include bruising, crepitus, locking, numbness, popping, swelling, tingling in the arms, weakness, morning stiffness, back pain and loss of height. Additional information: 2 mo Hx bilat shoulder pain R>L with radiation down arm stopping before wrists. no injuryWent to ED 06/2015 for this arm pain and was given medication that worked wellNow taking ibuprofen 600mg once at bedtime. Not taking APAP. TSH, ASt/ALT nl 06/2015Doesn't think she is more stiff in AM. hypertension It is currently getting worse. Pertinent negatives include chest pain, dyspnea, headache and visual disturbances. Additional information: taking meds daily, took BP meds this morning pap (comments) states did not r eceive mammo appt of 05-13-15 Hypertension (follow up) (comments) losartan 100, HCTZ 25DFE UTD fasting today for labs Hyperlipidemia (foll ow up) (comments) atorvastatin 20 Follow Up of prediab etes (comments) glcyo 5.9 ( vg 6.3 ) pap Hypertension (follow up) Hyperlipidemia (follow up) Follow Up of prediabetes Hypertension (follow up) Hyperlipidemia (follow up) HCM Hypertension (follow up) (comments) 148/66 med cuff lt by me seated in chair - stats no losartan 100 or HCTZ 25 x 3 days b/c did not chicken picker RF b/c did not want to walk to [place] [facility] - a friend usually picks up 02-07-15: crea 0.61 GFR 91 K+ 4.2 Hyperlipidemia (foll ow up) (comments) 02-14-15: started atorvastatin 20 HCM (comments) states was not c alled for mammo in [place] ( RF 02-07-15 ) joint pain chronic conditions back pain chronic conditions (comments) HT N - losartan 100, HCTZ 25 - did not take today - otherwise states no missed dosesB/P by me 158/64 lefthad DFE todayASCVD risk with 2012 FLP = 14.4 on no statin, allergic to aspirin - fasting today for labpreDM - missed nutr appts preventive exam (comments) [place] neg, no HR HPV donecolonoscopy 01-12-2010 - repeat 5-10 yrs preventive exam routine eye exam The patient pre sents for annual comprehensive eye examination. No itching, in the eyes. Patient has no history of ocular injury or surgery. There is no family history of eye disease or blindness. [facility] vision at [facility]. Blurry vision at [facility]. headache chronic conditions headache (comments) requests kaylyn oh for prn headaches chronic conditions (comments) minh huitron seen by me Oct 2013 - missed appt 12-07-13 states due to insurnace issues- also missed appts with nutr, EE ( ), derm Functional Status Date Functional Assessmen t No Information Instructions Date Instruction Additional Infor jhon Dietary and exercise management, guidance, and counseling Related to Overweight Dietary and exercise management, guidance, and counseling Related to Body mass index (BMI) 26.0-26.9, adult Dietary and exercise management, guidance, and counseling Related to Overweight (E66.3) Dietary and exercise management, guidance, and counseling Related to Body mass index (BMI) 26.0-26.9, adult Dietary management e ducation, guidance, and counseling Related to Body mass index (BMI) 27.0-27.9, adult Impression/Plan 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 Impression/Plan 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 Impression/Plan 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 Pt ed to d/c maxitrol and bacitracin; continue using ATs QID OU . RTC in July 2017 for CEE or sooner should symptoms return or other problems occur. Monitor. Related to Corneal ulcer of left eye Impression/Plan - Pt ed about today's findings. Prescribed Maxitrol (antibiotic/steroid) 1 gtt QID OS to be used in place of ofloxacin. Continue using bacitracin sebastien QHS OS. RTC 1 week for f/u. 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 Start ofloxacin 0.3% drops, 1 gtt QID OS. Also start bacitracin sebastien QHS OS. Strongly recommended that pt RTC in 2 days for f/u but pt cannot make it in. Pt has been scheduled for f/u Thursday 02/01. Pt ed to go to urgent care if eye worsens. 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 Start ATs QID OU. Monitor. Related to Dry eyes, bilateral Impression/Plan - Bi focal glasses not ordered. Patient to call Ins company to find where she can order her plan glasses. RTC 1 year Related to Presbyopia OU Impression/Plan - Pt defers drop s Related to Dry eyes, bilateral - No H,T,D 360 Retur n immediately with increase in pain, flashing lights, floaters or changes in vision Related to Vitreous degeneration - Artificial tears q id. Also, use [place] bid as needed. 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 Also, use Al[place] bid as needed. Related to Seasonal allergic conjunctivitis Assessments Type Assessment Date No Information Patient Care Teams Name Effective Dates (start - stop) Status Members No Information
--- OUTSIDE RECORDS SUMMARY | 2025-02-18 11:35 | XMS_ITS | Encounter Summary ---
Author Organization [employer] Address [address] [facility] [address] [place] [address] Care Team Providers Care All Round Logger Name Role Phone Melanie Austin MD Primary Care Provide r Encounter Details Date Type Department Care Team (Late st Contact Info) Description 11/29/2024 Telephone [facility] [address] [place], [place] [phone] Melanie Austin MD [address] [place], [place] [phone] Social History Tobacco Use Types Packs/Day Years [...] Description 03/07/2025 11:00 AM EDT Clinical Support [facility] [address] [place] [phone] 05/27/2025 11:00 AM EDT Office Visit [facility] [address] [place] [phone] Melanie Austin MD [address] [place] [phone] documented as of this encounter Goals Goal [...] documented as of this encounter Care Teams All Round Logger Relationship Specialty Start Date End Date Melanie Austin MD [address] [place] [phone] PCP - General Internal Medicine 07/19/23 documented as of this encounter
--- OUTSIDE RECORDS SUMMARY | 2025-02-18 11:35 | XMS_ITS | Encounter Summary ---
Author Organization [employer] Address [address] [facility] [address] [place] [address] Care Team Providers Care Group Art Supervisor Name Role Phone Melanie Austin MD Primary Care Provide r Reason for Visit * Reason Onset Date Comments Chart Prep 02/15/2025 Encounter Details Date Type Department Care Team ([facility] st Contact Info) Description 02/15/2025 Telephone [facility] [address] [place] [phone] Melanie Austin MD [address] [place] [phone] Chart Prep Social History Tobacco Use Types Packs/Day Years [...] encounter Miscellaneous Notes * Telephone Encounter - Shadia Galvez MA - 02/15/2025 8:22 AM EDT Chart Prep Labs: done Images: not applicable Referrals: appointment pending Team Rehab Vaccines due: Covid, Flu, and Hep B Screenings: foot exam Overdue care gaps: Glucose and CHANTEL-7 documented in this encounter Plan of Treatment Upcoming Encounters Date Type Department Care Team (Late st Contact Info) Description 03/07/2025 11:00 AM EDT Clinical Support [facility] [address] [place] [phone] 05/27/2025 11:00 AM EDT Office Visit [facility] [address] [place] [phone] Melanie Austin MD [address] [place] [phone] documented as of this encounter Goals Goal [...] documented as of this encounter Care Teams Group Art Supervisor Relationship Specialty Start Date End Date Melanie Austin MD [address] [place] [phone] PCP - General Internal Medicine 07/19/23 documented as of this encounter
[2025-02-18 14:06] LABS: Creatinine Urine 53.69 mg/dL; Microalbum/Creatinine Ratio Ur 11.1 ug/mg cr (<30)
[2025-02-18 14:51] LABS: Alanine Aminotransferase 26 U/L (0-31); Alkaline Phosphatase 67 U/L (39-117); Anion Gap 13 (12-20); Aspartate Amino Transferase 25 U/L (5-31); Blood Urea Nitrogen 19 mg/dL (9-16); Calcium 9.5 mg/dL (8.4-10.2); Carbon Dioxide 26 mmol/L (22-29); Chloride 104 mmol/L (96-108); Cholesterol 151 mg/dL (<200); Estimated Glomerular Filt Rate > 60; Glucose Random 139 mg/dL (60-115); HDL Cholesterol 53 mg/dL (>40); LDL Cholesterol Calculated 76 mg/dL (<100); Potassium 4.4 mmol/L (3.3-5.1); Sodium 139 mmol/L (135-145); Total Protein 7.5 g/dL (6.5-8.0); Triglycerides 111 mg/dL (<150)
== END 2025-02-18 10:51 | disposition home or self-care (01) ==
LOC: HO.HHCL 10:50
PROVIDERS: Visit Provider Internal Medicine
DX: E11.65 Type 2 diabetes mellitus with hyperglycemia (principal)
CPT/HCPCS: 36415; 80053; 80061; 82043; 82570